=== PATIENT | female | born 1930 | race Caucasian/White ===

== ENCOUNTER 2016-04-18 15:17 | Inpatient (IN) | payer MEDICARE, BC ==
[~2016-04-18] VITALS: Ht 157.5 cm; Wt 49.9 kg
[2016-04-18 16:23] VITALS: BP 176/100
[2016-04-18 17:26] LABS: BASOPHILS % (AUTO) 0.6 % (0.0-2.0); EOSINOPHILS % (AUTO) 0.1 % (0.0-3.0); LYMPHOCYTES % (AUTO) 17.2 % (20.0-45.0); MEAN CORPUSCULAR HGB CONC 31.1 G/DL (32.0-36.0); MEAN CORPUSCULAR VOLUME 100 FL (80-99); MEAN PLATELET VOLUME 10.2 FL (6.5-10.1); MONOCYTES % (AUTO) 8.5 % (1.0-10.0); NEUTROPHILS % (AUTO) 73.7 % (45.0-75.0); PLATELET COUNT 185 K/UL (150-450); RED BLOOD COUNT 4.68 M/UL (4.20-5.40); RED CELL DISTRIBUTION WIDTH 14.2 % (11.6-14.8); WHITE BLOOD COUNT 14.4 K/UL (4.8-10.8)
[2016-04-18 17:30] LABS: ALANINE AMINOTRANSFERASE 39 U/L (3-33); ALBUMIN/GLOBULIN RATIO 1.2 (1.0-2.7); ANION GAP 16 (5-15); ASPARTATE AMINO TRANSFERASE 41 U/L (5-40); CALCIUM 10.6 mg/dL (8.6-10.2); CARBON DIOXIDE 31 mEQ/L (20-30); CHLORIDE 113 mEQ/L (98-107); HEMOLYSIS 63; POTASSIUM 3.6 mEQ/L (3.4-4.9); SODIUM 160 mEQ/L (135-145); TOTAL PROTEIN 7.3 g/dL (6.6-8.7)
[2016-04-18 17:39] LABS: TROPONIN I 0.71 ng/mL (<=0.30)
[2016-04-18 17:42] LABS: CKMB < 1.5 ng/mL (< 3.8)
[2016-04-18 17:56] LABS: APPEARANCE,URINE CLEAR; KETONES,URINE 1+ (NEGATIVE); LEUKOCYTE ESTERASE ,URINE 1+ (NEGATIVE); NITRITE,URINE NEGATIVE (NEGATIVE); PH,URINE 5 (4.5-8.0); PROTEIN,URINE 4+ (NEGATIVE); UROBILINOGEN,URINE NORMAL MG/DL (0.0-1.0)
[2016-04-18 18:02] LABS: BACTERIA,URINE MODERATE /HPF
[2016-04-18 18:03] LABS: AMORPHOUS SEDIMENT,UR FEW /LPF
[2016-04-18] MEDS ORDERED: cefTRIAXone 1 GM in NS 55 ML IVPB ONE (18:15)
[2016-04-18 18:30] VITALS: BP 164/72
[2016-04-18 20:08] VITALS: BP 150/77
--- NOTE | 2016-04-18 21:44 | Emergency Room Report ---
History of Present Illness General Chief Complaint: Generalized Weakness Source: EMS, Caregiver Present Illness HPI 85-year-old female presents to ED for evaluation. Her taker is at bedside and states that for the last day patient has been more weak than usual. Not eating. No reported fevers or chills. No chest pain or shortness of breath. No nausea or vomiting. No other aggravating or relieving factors. Denies any other associated symptoms. PMD is Dr. Marc Allergies: Coded Allergies: No Known Allergies (Unverified , 04/18/16) Patient History Past Medical History: CVA/TIA Past Surgical History: none Pertinent Family History: none Social History: Denies: alcohol use, drug use, smoking Now: No Immunizations: UTD Reviewed Nursing Documentation: PMH: Agreed, PSxH: Agreed Nursing Documentation-PMH Past Medical History: No History, Except For Hx Cerebrovascular Accident: Yes - Unknown deficit Review of Systems All Other Systems: negative except mentioned in HPI Physical Exam Vital Signs Date Time Temp Pulse Resp B/P Pulse Ox O2 Delivery O2 Flow Rate FiO2 04/18/16 15:13 97.9 112 16 160/102 97 Room Air Sp02 EP Interpretation: reviewed, normal General Appearance: no apparent distress, alert, GCS 15, non-toxic, thin Head: normocephalic, atraumatic Eyes: bilateral eye PERRL, bilateral eye normal inspection ENT: hearing grossly normal, normal pharynx, no angioedema, normal voice Neck: full range of motion, supple/symm/no masses Respiratory: chest non-tender, lungs clear, normal breath sounds, speaking full sentences Cardiovascular #1: regular rate, rhythm, no edema Cardiovascular #2: 2+ carotid (R), 2+ carotid (L), 2+ radial (R), 2+ radial (L) , 2+ dorsalis pedis (R), 2+ dorsalis pedis (L) Gastrointestinal: normal bowel sounds, non tender, soft, non-distended, no guarding, no rebound Rectal: deferred Genitourinary: normal inspection, no CVA tenderness Musculoskeletal: back normal, gait/station normal, normal range of motion, non- tender Neurologic: alert, oriented x3, responsive, motor strength/tone normal, sensory intact, speech normal Psychiatric: judgement/insight normal, memory normal, mood/affect normal, no suicidal/homicidal ideation Reflexes: 3+ bicep (R), 3+ bicep (L), 3+ tricep (R), 3+ tricep (L), 3+ knee (R) , 3+ knee (L) Skin: normal color, no rash, warm/dry, well hydrated Lymphatic: no adenopathy Procedures Critical Care Time Critical Care Time i. I feel this is a highly complex case requiring extensive working including EKG/Rhythm strip, Xray/CT/US, Blood/urine lab work, repeat exams while in ED, and administration of strong opiates/narcotics for pain control, admission to hospital or close patient follow up. Total time: 30 min bedside evaluation and treatment excludes procedures (EKG). Reason for critical care: Hypernatremia, dehydration, elevated troponin Possible complications: hypotension, hypertension, AR, shock, arrhythmias, metabolic acidosis, end organ damage, respiratory failure. Interventions: Labs, IV fluids, EKG, chest x-ray, aspirin, antibiotics Course: Patient brought in for generalized weakness. No chest pain. EKG shows T-wave inversions. Troponins elevated. Patient denies chest pain. Sodium elevated, consistent with dehydration. Given antibiotics for UTI. Given aspirin. Consultations: nursing staff, EMS, family Performed by: Dr Guido Tolerated well condition = serious j. because of unstable vital signs this patient had a condition that could potentially threaten life or limb. I feel this is a critical patient who required my full attention while patient was considered critical. Total Critical Care Time excluding procedures was greater than 35 minutes Medical Decision Making Diagnostic Impression: Primary Impression: Episode of generalized weakness Additional Impressions: Elevated troponin Dehydration Hypernatremia UTI (urinary tract infection) ER Course Hospital Course 85-year-old female presents ED complaining of increased weakness, poor appetite Differential diagnoses include: AR/unstable angina, dehydration, sepsis Clinical course She placed on stretcher. After initial history and physical I ordered labs, EKG , chest x-ray, UA labs reviewed- no leukocytosis, Na 160, BUN/Cr 50/1. Trop 0.72. UA + bacteria EKG-Twave inversions in lateral leads, no ST elevations Chest x-ray- no acute process Patient denies any chest pain. Discussed case with PMD Dr. Marc; will not treat acutely as NSTEMI. Given aspirin. Given antibiotics. Given IV fluids I. I feel this is a highly complex case requiring extensive working including EKG/Rhythm strip, Xray/CT/US, Blood/urine lab work, repeat exams while in ED, and administration of strong opiates/narcotics for pain control, admission to hospital or close patient follow up. Diagnosis - episode of generalized weakness, elevated troponin, dehydration, hypernatremia, UTI admitted to [facility] in serious condition Labs Test 04/18/16 16:18 04/18/16 17:37 White Blood Count 14.4 K/UL (4.8-10.8) Red Blood Count 4.68 M/UL (4.20-5.40) Hemoglobin 14.5 G/DL (12.0-16.0) Hematocrit 46.6 % (37.0-47.0) Mean Corpuscular Volume 100 FL (80-99) Mean Corpuscular Hemoglobin 31.0 PG (27.0-31.0) Mean Corpuscular Hemoglobin Concent 31.1 G/DL (32.0-36.0) Red Cell Distribution Width 14.2 % (11.6-14.8) Platelet Count 185 K/UL (150-450) Mean Platelet Volume 10.2 FL (6.5-10.1) Neutrophils (%) (Auto) 73.7 % (45.0-75.0) Lymphocytes (%) (Auto) 17.2 % (20.0-45.0) Monocytes (%) (Auto) 8.5 % (1.0-10.0) Eosinophils (%) (Auto) 0.1 % (0.0-3.0) Basophils (%) (Auto) 0.6 % (0.0-2.0) Sodium Level 160 mEQ/L (135-145) Potassium Level 3.6 mEQ/L (3.4-4.9) Chloride Level 113 mEQ/L (98-107) Carbon Dioxide Level 31 mEQ/L (20-30) Anion Gap 16 (5-15) Blood Urea Nitrogen 50 mg/dL (7-23) Creatinine 1.0 mg/dL (0.5-0.9) Estimat Glomerular Filtration Rate mL/min (>60) Glucose Level 138 mg/dL (74-106) Lactic Acid Level 1.80 mmol/L (0.66-2.22) Calcium Level 10.6 mg/dL (8.6-10.2) Total Bilirubin 0.6 mg/dL (0.0-1.2) Aspartate Amino Transf (AST/SGOT) 41 U/L (5-40) Alanine Aminotransferase (ALT/SGPT) 39 U/L (3-33) Alkaline Phosphatase 73 U/L (35-104) Total Creatine Kinase 234 U/L (26-140) Creatine Kinase MB < 1.5 ng/mL (< 3.8) Creatine Kinase MB Relative Index Troponin I 0.71 ng/mL (<=0.30) Total Protein 7.3 g/dL (6.6-8.7) Albumin 4.0 g/dL (3.5-5.2) Globulin 3.3 g/dL Albumin/Globulin Ratio 1.2 (1.0-2.7) Urine Color Yellow Urine Appearance Clear Urine pH 5 (4.5-8.0) Urine Specific [place] 1.025 (1.005-1.035) Urine Protein 4+ (NEGATIVE) Urine Glucose (UA) Negative (NEGATIVE) Urine Ketones 1+ (NEGATIVE) Urine Occult Blood 3+ (NEGATIVE) Urine Nitrite Negative (NEGATIVE) Urine Bilirubin Negative (NEGATIVE) Urine Urobilinogen Normal MG/DL (0.0-1.0) Urine Leukocyte Esterase 1+ (NEGATIVE) Urine RBC 5-10 /HPF (0 - 2) Urine WBC 2-4 /HPF (0 - 2) Urine Squamous Epithelial Cells None /LPF (NONE/OCC) Urine Amorphous Sediment Few /LPF (NONE) Urine Bacteria Moderate /HPF (NONE) EKG Diagnostic Results Rate: normal Rhythm: NSR ST Segments: other - T wave inversion in lateral leads ASA given to the pt in ED: Yes Rhythm Strip Diag. Results EP Interpretation: yes Rhythm: NSR, no PVC's, no ectopy Chest X-Ray Diagnostic Results EP Interpretation: Yes Findings: no consolidation, no effusion, no pneumothorax, no acute cardiopulmonary disease Number of Views: 1 Last Vital Signs Date Time Temp Pulse Resp B/P Pulse Ox O2 Delivery O2 Flow Rate FiO2 04/18/16 20:08 99 25 150/77 98 Room Air 04/18/16 16:23 99.3 Status: improved Disposition: ADMITTED INPATIENT Condition: Serious Referrals: NUBIA MARC (PCP) LESLIE GUIDO M.D. Apr 18, 2016 21:44
[2016-04-18] MEDS ORDERED: Heparin 25,000u/D5W 500ml 500 ML IV SCH (23:15)
--- NOTE | 2016-04-18 23:50 | Geriatric Progress Note ---
Subjective Interval Events 85 y/o woman with confusion, generalized weakness, anorexia. In ED found to have significant hypernatremia, azotemia, moderate leukocytosis, elevated troponin. Admitted for further eval and treatment. Hosp in December at [facility] with acute lacunar CVA. Hosp in January at [facility], s/p fall with lumbar compression fx. Rehab at [facility]. PMH: Cognitive dysfunction, ? vascular. Depressive syndrome. Abdominal bloating. Reflux. Presbyesophagus. Gastritis. Pancreatic insufficiency. Hyperlipidemia. Glaucoma. UTIs. Hx of Fe deficiency. Hx hemorrhoids. Seen yesterday in office with some nausea, regurgitation, ?element of dysphagia. Appeared volume depleted, but reported as able to take po fluids. Instructed to push po fluids, follow up with Dr. Borjas. Brought in today because of lethargy, no further vomiting. Given IVF, Ceftriaxone in ED. Continue IVF, Ceftriaxone. Recheck labs. GI evaluation. Full liquid diet and advance as tolerated. Dictated #[id number]. Geriatric Geriatric Last 24 Hour Vital Signs Date Time Temp Pulse Resp B/P Pulse Ox O2 Delivery O2 Flow Rate FiO2 04/18/16 23:16 91 17 143/75 98 Room Air 04/18/16 20:08 99 25 150/77 98 Room Air 04/18/16 18:30 96 18 164/72 99 Room Air 04/18/16 16:23 99.3 124 26 176/100 97 Room Air 04/18/16 15:13 97.9 112 16 160/102 97 Room Air Laboratory Tests Test 04/18/16 16:18 04/18/16 17:37 White Blood Count 14.4 K/UL (4.8-10.8) H Red Blood Count 4.68 M/UL (4.20-5.40) Hemoglobin 14.5 G/DL (12.0-16.0) Hematocrit 46.6 % (37.0-47.0) Mean Corpuscular Volume 100 FL (80-99) H Mean Corpuscular Hemoglobin 31.0 PG (27.0-31.0) Mean Corpuscular Hemoglobin Concent 31.1 G/DL (32.0-36.0) L Red Cell Distribution Width 14.2 % (11.6-14.8) Platelet Count 185 K/UL (150-450) Mean Platelet Volume 10.2 FL (6.5-10.1) H Neutrophils (%) (Auto) 73.7 % (45.0-75.0) Lymphocytes (%) (Auto) 17.2 % (20.0-45.0) L Monocytes (%) (Auto) 8.5 % (1.0-10.0) Eosinophils (%) (Auto) 0.1 % (0.0-3.0) Basophils (%) (Auto) 0.6 % (0.0-2.0) Sodium Level 160 mEQ/L (135-145) H Potassium Level 3.6 mEQ/L (3.4-4.9) Chloride Level 113 mEQ/L (98-107) H Carbon Dioxide Level 31 mEQ/L (20-30) H Anion Gap 16 (5-15) H Blood Urea Nitrogen 50 mg/dL (7-23) H Creatinine 1.0 mg/dL (0.5-0.9) H Estimat Glomerular Filtration Rate mL/min (>60) Glucose Level 138 mg/dL (74-106) H Lactic Acid Level 1.80 mmol/L (0.66-2.22) Calcium Level 10.6 mg/dL (8.6-10.2) H Total Bilirubin 0.6 mg/dL (0.0-1.2) Aspartate Amino Transf (AST/SGOT) 41 U/L (5-40) H Alanine Aminotransferase (ALT/SGPT) 39 U/L (3-33) H Alkaline Phosphatase 73 U/L (35-104) Total Creatine Kinase 234 U/L (26-140) H Creatine Kinase MB < 1.5 ng/mL (< 3.8) Creatine Kinase MB Relative Index Troponin I 0.71 ng/mL (<=0.30) *H Total Protein 7.3 g/dL (6.6-8.7) Albumin 4.0 g/dL (3.5-5.2) Globulin 3.3 g/dL Albumin/Globulin Ratio 1.2 (1.0-2.7) Urine Color Yellow Urine Appearance Clear Urine pH 5 (4.5-8.0) Urine Specific [place] 1.025 (1.005-1.035) Urine Protein 4+ (NEGATIVE) H Urine Glucose (UA) Negative (NEGATIVE) Urine Ketones 1+ (NEGATIVE) H Urine Occult Blood 3+ (NEGATIVE) H Urine Nitrite Negative (NEGATIVE) Urine Bilirubin Negative (NEGATIVE) Urine Urobilinogen Normal MG/DL (0.0-1.0) Urine Leukocyte Esterase 1+ (NEGATIVE) H Urine RBC 5-10 /HPF (0 - 2) H Urine WBC 2-4 /HPF (0 - 2) Urine Squamous Epithelial Cells None /LPF (NONE/OCC) Urine Amorphous Sediment Few /LPF (NONE) H Urine Bacteria Moderate /HPF (NONE) H Current Medications Medications (Trade) Dose Ordered Sig/Remy Route PRN Reason Start Time Stop Time Status Last Admin Dose Admin Dextrose/ Electrolytes (D5 0.45%NS W/ KCl 20mEq) 1,000 ml @ 100 mls/hr Q10H IV 04/19/16 00:05 05/19/16 00:04 UNV Heparin Sodium (Porcine) (Heparin 5000 units/ml) 5,000 units EVERY 12 HOURS SUBQ 04/19/16 09:00 05/19/16 08:59 UNV Heparin Sodium/ Dextrose (Heparin) 500 ml @ 11.975 mls/ hr adjust per protocol IV 04/18/16 23:15 05/18/16 23:14 UNV Pantoprazole 40 mg 40 mg DAILY IV 04/19/16 09:00 05/19/16 08:59 UNV Height (Feet): 5 Height (Inches): 2.00 Weight (Pounds): 110 NUBIA MARC Apr 18, 2016 23:50
[2016-04-19 00:15] VITALS: BP 155/85
[2016-04-19] MEDS ORDERED: D5 1/2NS w/KCl 20mEq 1,000 ML IV SCH ×2 (00:30)
[2016-04-19 02:13] LABS: TROPONIN I 0.5 ng/mL (<=0.30)
[2016-04-19 04:00] VITALS: BP 131/64
[2016-04-19 05:16] LABS: BASOPHILS % (AUTO) 0.7 % (0.0-2.0); EOSINOPHILS % (AUTO) 0.1 % (0.0-3.0); LYMPHOCYTES % (AUTO) 17.1 % (20.0-45.0); MEAN CORPUSCULAR HEMOGLOBIN 30.5 PG (27.0-31.0); MEAN CORPUSCULAR HGB CONC 31.4 G/DL (32.0-36.0); MEAN CORPUSCULAR VOLUME 97 FL (80-99); MEAN PLATELET VOLUME 9.8 FL (6.5-10.1); MONOCYTES % (AUTO) 7.5 % (1.0-10.0); NEUTROPHILS % (AUTO) 74.5 % (45.0-75.0); PLATELET COUNT 167 K/UL (150-450); RED BLOOD COUNT 4.28 M/UL (4.20-5.40); RED CELL DISTRIBUTION WIDTH 14.1 % (11.6-14.8); WHITE BLOOD COUNT 11.6 K/UL (4.8-10.8)
[2016-04-19 05:19] LABS: ANION GAP 14 (5-15); CALCIUM 9.2 mg/dL (8.6-10.2); CARBON DIOXIDE 29 mEQ/L (20-30); CHLORIDE 120 mEQ/L (98-107); CREATININE 0.7 mg/dL (0.5-0.9); HEMOLYSIS 0; POTASSIUM 3.2 mEQ/L (3.4-4.9)
[2016-04-19 05:24] LABS: SODIUM 163 mEQ/L (135-145)
[2016-04-19 07:56] VITALS: BP 156/85
[2016-04-19] MEDS ORDERED: Timolol 0.5% Op Soln 2.5ml BOTH EYES SCH (09:00)
[2016-04-19] MEDS: Pancrease Cap ORAL SCH ×3 (09:30→17:46)
[2016-04-19] MEDS: Memantine 10mg tab ORAL SCH ×2 (09:30→17:47)
[2016-04-19] MEDS: Aspirin Baby 81mg ORAL SCH (09:30)
[2016-04-19] MEDS: Pantoprazole Inj IV SCH (09:31)
[2016-04-19] MEDS: DULoxetine 30mg cap ORAL SCH (09:31)
[2016-04-19] MEDS: Heparin 5000 units/ml inj SUBQ SCH ×2 (09:57→21:14)
[2016-04-19] MEDS ORDERED: ARTIFICIAL TEAR15 ML BOTH EYES (10:58)
[2016-04-19] MEDS ORDERED: TIMOPTIC 0.5%1 EACH OP (10:58)
[2016-04-19] MEDS ORDERED: PANCREASE1 EA ORAL (10:58)
[2016-04-19] MEDS ORDERED: LEXAPRO10 MG ORAL (10:58)
[2016-04-19] MEDS ORDERED: ROZEREM8 MG PO (10:58)
[2016-04-19] MEDS ORDERED: ARICEPT5 MG ORAL (10:58)
[2016-04-19] MEDS ORDERED: CYMBALTA30 MG ORAL (10:58)
[2016-04-19] MEDS ORDERED: ASPIRIN81 M3 PO (10:58)
[2016-04-19] MEDS ORDERED: PROTONIX40 MG ORAL (10:58)
[2016-04-19] MEDS ORDERED: NAMENDA10 MG ORAL (10:58)
[2016-04-19 11:54] VITALS: BP 167/96
[2016-04-19] MEDS: Artificial Tears 1.4% Op Soln BOTH EYES SCH ×4 (13:55→21:09)
[2016-04-19] MEDS: Timolol 0.5% Op Soln 2.5ml BOTH EYES SCH (13:55)
--- NOTE | 2016-04-19 14:35 | Cardiology Progress Note ---
Assessment/Plan Assessment/Plan nstemi toxic metabolic encphalptpathy hypernatremia volume depeteion demetial recetn compression fx dnr conservative rexm d/w family no invasive haley ecotrin ntp statin bb [id number] Objective Last 24 Hour Vital Signs Date Time Temp Pulse Resp B/P Pulse Ox O2 Delivery O2 Flow Rate FiO2 04/19/16 11:54 97.0 90 20 167/96 96 Room Air 04/19/16 07:56 97.3 88 18 156/85 99 Room Air 04/19/16 04:00 93 04/19/16 04:00 98.8 79 20 131/64 97 Room Air 04/19/16 00:15 98.1 98 20 155/85 97 Room Air 04/18/16 23:16 91 17 143/75 98 Room Air 04/18/16 20:08 99 25 150/77 98 Room Air 04/18/16 18:30 96 18 164/72 99 Room Air 04/18/16 16:23 99.3 124 26 176/100 97 Room Air 04/18/16 15:13 97.9 112 16 160/102 97 Room Air Intake and Output 04/18/16 04/19/16 19:00 07:00 Intake Total 1055 ml 450 ml Output Total 400 ml Balance 1055 ml 50 ml Intake Oral 0 ml IV Total 1055 ml 450 ml Output Urine Total 400 ml Laboratory Tests Test 04/18/16 16:18 04/18/16 17:37 04/19/16 01:15 04/19/16 04:25 White Blood Count 14.4 K/UL (4.8-10.8) H 11.6 K/UL (4.8-10.8) H Red Blood Count 4.68 M/UL (4.20-5.40) 4.28 M/UL (4.20-5.40) Hemoglobin 14.5 G/DL (12.0-16.0) 13.0 G/DL (12.0-16.0) Hematocrit 46.6 % (37.0-47.0) 41.5 % (37.0-47.0) Mean Corpuscular Volume 100 FL (80-99) H 97 FL (80-99) Mean Corpuscular Hemoglobin 31.0 PG (27.0-31.0) 30.5 PG (27.0-31.0) Mean Corpuscular Hemoglobin Concent 31.1 G/DL (32.0-36.0) L 31.4 G/DL (32.0-36.0) L Red Cell Distribution Width 14.2 % (11.6-14.8) 14.1 % (11.6-14.8) Platelet Count 185 K/UL (150-450) 167 K/UL (150-450) Mean Platelet Volume 10.2 FL (6.5-10.1) H 9.8 FL (6.5-10.1) Neutrophils (%) (Auto) 73.7 % (45.0-75.0) 74.5 % (45.0-75.0) Lymphocytes (%) (Auto) 17.2 % (20.0-45.0) L 17.1 % (20.0-45.0) L Monocytes (%) (Auto) 8.5 % (1.0-10.0) 7.5 % (1.0-10.0) Eosinophils (%) (Auto) 0.1 % (0.0-3.0) 0.1 % (0.0-3.0) Basophils (%) (Auto) 0.6 % (0.0-2.0) 0.7 % (0.0-2.0) Sodium Level 160 mEQ/L (135-145) H 163 mEQ/L (135-145) *H Potassium Level 3.6 mEQ/L (3.4-4.9) 3.2 mEQ/L (3.4-4.9) L Chloride Level 113 mEQ/L (98-107) H 120 mEQ/L (98-107) H Carbon Dioxide Level 31 mEQ/L (20-30) H 29 mEQ/L (20-30) Anion Gap 16 (5-15) H 14 (5-15) Blood Urea Nitrogen 50 mg/dL (7-23) H 41 mg/dL (7-23) H Creatinine 1.0 mg/dL (0.5-0.9) H 0.7 mg/dL (0.5-0.9) Estimat Glomerular Filtration Rate mL/min (>60) mL/min (>60) Glucose Level 138 mg/dL (74-106) H 120 mg/dL (74-106) H Lactic Acid Level 1.80 mmol/L (0.66-2.22) Calcium Level 10.6 mg/dL (8.6-10.2) H 9.2 mg/dL (8.6-10.2) Total Bilirubin 0.6 mg/dL (0.0-1.2) Aspartate Amino Transf (AST/SGOT) 41 U/L (5-40) H Alanine Aminotransferase (ALT/SGPT) 39 U/L (3-33) H Alkaline Phosphatase 73 U/L (35-104) Total Creatine Kinase 234 U/L (26-140) H Creatine Kinase MB < 1.5 ng/mL (< 3.8) Creatine Kinase MB Relative Index Troponin I 0.71 ng/mL (<=0.30) *H 0.50 ng/mL (<=0.30) *H Total Protein 7.3 g/dL (6.6-8.7) Albumin 4.0 g/dL (3.5-5.2) Globulin 3.3 g/dL Albumin/Globulin Ratio 1.2 (1.0-2.7) Urine Color Yellow Urine Appearance Clear Urine pH 5 (4.5-8.0) Urine Specific [place] 1.025 (1.005-1.035) Urine Protein 4+ (NEGATIVE) H Urine Glucose (UA) Negative (NEGATIVE) Urine Ketones 1+ (NEGATIVE) H Urine Occult Blood 3+ (NEGATIVE) H Urine Nitrite Negative (NEGATIVE) Urine Bilirubin Negative (NEGATIVE) Urine Urobilinogen Normal MG/DL (0.0-1.0) Urine Leukocyte Esterase 1+ (NEGATIVE) H Urine RBC 5-10 /HPF (0 - 2) H Urine WBC 2-4 /HPF (0 - 2) Urine Squamous Epithelial Cells None /LPF (NONE/OCC) Urine Amorphous Sediment Few /LPF (NONE) H Urine Bacteria Moderate /HPF (NONE) H Activated Partial Thromboplast Time 22 SEC (23-33) L Microbiology Date/Time Source Procedure Growth Status 04/18/16 17:37 Urine,Clean Catch Urine Culture - Preliminary Gram Negative Jd Resulted ANDREE PROCTOR Apr 19, 2016 14:35
[2016-04-19] MEDS ORDERED: Nitroglycerin 2% oint pkt TOPIC ONE (14:45)
[2016-04-19] MEDS ORDERED: Metoprolol 5mg/5ml Inj IVP PRN (15:30)
[2016-04-19] MEDS: Metoprolol 25mg tab ORAL SCH ×2 (15:40→21:13)
[2016-04-19] MEDS ORDERED: Metoprolol Tartrate 12.5mg TAB ORAL SCH (16:00)
[2016-04-19 16:39] VITALS: BP 179/109
[2016-04-19] MEDS: Nitroglycerin 2% oint pkt TOPIC SCH (17:45)
[2016-04-19] MEDS: cefTRIAXone 1 GM in D5W 55 ML IVPB SCH (17:45)
--- NOTE | 2016-04-19 19:06 | Geriatric Progress Note ---
Assessment/Plan Problems: (1) Hypernatremia (2) Dehydration (3) Elevated troponin (4) Episode of generalized weakness (5) Toxic metabolic encephalopathy Assessment/Plan Possible underlying CAD with global ischemia, either high grade disease or hypoperfusion ischemia. Volume depletion with elctrolyte disorder. Anorexia due to multiple factors. Leukocytosis resolving with empiric coverage. Continue IVF, Ceftriaxone, cardiac meds per Dr. Cavazos, recheck labs. Discussed with: patient, hospital staff, other - caregiver Subjective Interval Events Patient slightly more responsive but still with inarticulate answers. EKG changes suggestive of global ischemia per Dr. Cavazos. Na up to 168, IVF changed to increase free water. BUN/Cr improved somewhat. Per Dr. Cavazos, possibility of coronary ischemia, further compromise discussed with family, conservative approach elected. Minimal amount of P.O begun. Subjective No definite pain, responses limited. Geriatric Geriatric Last 24 Hour Vital Signs Date Time Temp Pulse Resp B/P Pulse Ox O2 Delivery O2 Flow Rate FiO2 04/19/16 17:45 179/109 04/19/16 16:39 97.2 100 18 179/109 100 Nasal Cannula 2.0 04/19/16 15:40 90 167/96 04/19/16 14:52 167/96 04/19/16 12:00 90 04/19/16 11:54 97.0 90 20 167/96 96 Room Air 04/19/16 08:00 94 04/19/16 07:56 97.3 88 18 156/85 99 Room Air 04/19/16 04:00 93 04/19/16 04:00 98.8 79 20 131/64 97 Room Air 04/19/16 00:15 98.1 98 20 155/85 97 Room Air 04/18/16 23:16 91 17 143/75 98 Room Air 04/18/16 20:08 99 25 150/77 98 Room Air Intake and Output 04/18/16 04/19/16 19:00 07:00 Intake Total 1055 ml 450 ml Output Total 400 ml Balance 1055 ml 50 ml Intake Oral 0 ml IV Total 1055 ml 450 ml Output Urine Total 400 ml Laboratory Tests Test 04/19/16 01:15 04/19/16 04:25 Activated Partial Thromboplast Time 22 SEC (23-33) L Troponin I 0.50 ng/mL (<=0.30) *H White Blood Count 11.6 K/UL (4.8-10.8) H Red Blood Count 4.28 M/UL (4.20-5.40) Hemoglobin 13.0 G/DL (12.0-16.0) Hematocrit 41.5 % (37.0-47.0) Mean Corpuscular Volume 97 FL (80-99) Mean Corpuscular Hemoglobin 30.5 PG (27.0-31.0) Mean Corpuscular Hemoglobin Concent 31.4 G/DL (32.0-36.0) L Red Cell Distribution Width 14.1 % (11.6-14.8) Platelet Count 167 K/UL (150-450) Mean Platelet Volume 9.8 FL (6.5-10.1) Neutrophils (%) (Auto) 74.5 % (45.0-75.0) Lymphocytes (%) (Auto) 17.1 % (20.0-45.0) L Monocytes (%) (Auto) 7.5 % (1.0-10.0) Eosinophils (%) (Auto) 0.1 % (0.0-3.0) Basophils (%) (Auto) 0.7 % (0.0-2.0) Sodium Level 163 mEQ/L (135-145) *H Potassium Level 3.2 mEQ/L (3.4-4.9) L Chloride Level 120 mEQ/L (98-107) H Carbon Dioxide Level 29 mEQ/L (20-30) Anion Gap 14 (5-15) Blood Urea Nitrogen 41 mg/dL (7-23) H Creatinine 0.7 mg/dL (0.5-0.9) Estimat Glomerular Filtration Rate mL/min (>60) Glucose Level 120 mg/dL (74-106) H Calcium Level 9.2 mg/dL (8.6-10.2) Current Medications Medications (Trade) Dose Ordered Sig/Remy Route PRN Reason Start Time Stop Time Status Last Admin Dose Admin Amylase/Lipase/ Protease (Pancrease) 2 ea THREE TIMES A DAY ORAL 04/19/16 09:00 05/19/16 08:59 04/19/16 17:46 Artificial Tears 1 drop 1 drop QID BOTH EYES 04/19/16 09:00 05/19/16 08:59 04/19/16 17:45 Aspirin (ASA) 81 mg DAILY ORAL 04/19/16 09:00 05/19/16 08:59 04/19/16 09:30 Atorvastatin Calcium (Lipitor) 10 mg BEDTIME ORAL 04/19/16 21:00 05/19/16 20:59 Ceftriaxone Sodium 1 gm/ Dextrose 55 ml @ 110 mls/hr Q24H IVPB 04/19/16 18:00 04/26/16 17:59 04/19/16 17:45 Donepezil HCl (Aricept) 5 mg QHS ORAL 04/19/16 21:00 05/19/16 20:59 Duloxetine HCl (Cymbalta) 30 mg DAILY ORAL 04/19/16 09:00 05/19/16 08:59 04/19/16 09:31 Escitalopram Oxalate (Lexapro) 5 mg QHS ORAL 04/19/16 21:00 05/19/16 20:59 Heparin Sodium (Porcine) (Heparin 5000 units/ml) 5,000 units EVERY 12 HOURS SUBQ 04/19/16 09:00 05/19/16 08:59 04/19/16 09:57 Memantine (Namenda) 10 mg BID ORAL 04/19/16 09:00 05/19/16 08:59 04/19/16 17:47 Metoprolol Tartrate (Lopressor) 5 mg Q4H PRN IVP hr more 120 for 5 min 04/19/16 15:30 05/19/16 15:29 Metoprolol Tartrate (Lopressor) 25 mg Q12HR ORAL 04/19/16 15:30 05/19/16 15:29 04/19/16 15:40 Nitroglycerin (Nitro-Bid) 1 inch TID@0600,1200,1800 TOPIC 04/19/16 18:00 05/19/16 17:59 04/19/16 17:45 Pantoprazole (Protonix) 40 mg DAILY IV 04/19/16 09:00 05/19/16 08:59 04/19/16 09:31 Potassium Chloride/Dextrose (KCl/D5W 1000ml) 1,015 ml @ 100 mls/hr Q10H9M IV 04/19/16 08:30 05/19/16 08:29 04/19/16 17:48 Ramelteon (Rozerem) 8 mg QHS ORAL 04/19/16 21:00 05/19/16 20:59 Timolol Maleate (Timoptic 0.5% Op Soln) 1 drop TWICE A DAY BOTH EYES 04/19/16 18:00 05/19/16 17:59 04/19/16 13:55 Height (Feet): 5 Height (Inches): 2.00 Weight (Pounds): 110 General Appearance: lethargic Head: normocephalic Eyes: bilateral anicteric ENT: normal voice Neck: full range of motion, no mass Respiratory: lungs clear Cardiovascular: regular rate, rhythm Gastrointestinal: normal bowel sounds, non tender, soft, no mass, no organomegaly, non-distended Edema: no edema noted Generalized Neurologic: alert, no new focality NUBIA MARC Apr 19, 2016 19:06
[2016-04-19 20:00] VITALS: BP 163/84
[2016-04-19] MEDS: Ramelteon 8mg tab (Approved for Delirium use only) ORAL SCH (21:10)
[2016-04-19] MEDS: Donepezil 5mg Tab ORAL SCH (21:12)
[2016-04-19 23:48] LABS: TROPONIN I < 0.30 ng/mL (<=0.30)
[2016-04-20] VITALS (7 sets, daily range): BP systolic 104–150; BP diastolic 56–85
--- NOTE | 2016-04-20 04:59 | History and Physical Report ---
DATE OF ADMISSION: 04/18/2016 IDENTIFICATION DATA: The patient is an 85-year-old woman, who developed lethargy and unresponsiveness and was brought to the emergency room. HISTORY OF PRESENT ILLNESS: This patient has been quite frail and declining functionally over an extended period of time. Apparently sometime in 2013, she experienced a cerebrovascular event, which caused cognitive changes and some degree of gait instability. Prior to that, she reportedly had been playing tennis. Subsequently, she has been living at home with a part-time caregiver and has had symptoms of depression, but also recurrent complaints of abdominal bloating and poor oral intake. She has been seen by Dr. Claire Borjas and had undergone a colonoscopy and endoscopy with findings of gastritis, reflux, hiatal hernia, and presbyesophagus. She has also had history of hemorrhoids with bleeding and discomfort. Overall evaluation has also suggested somewhat unclear pancreatic pathology with evidence of some pancreatic insufficiency and the patient has been placed on pancreatic enzyme supplements. Because of recurrent complaints of pain as well as depressive symptomatology, the patient had been placed on Cymbalta as well and developed some overall improvement of her symptoms; however, in December 2015, the patient was hospitalized at [facility] with change in mental status and an apparent acute lacunar-type cerebrovascular accident. She returned home, but subsequently in January was hospitalized again at [facility] with back injury due to a fall. The findings included a lumbar compression fracture and the patient was discharged to [facility] for rehabilitation. She was discharged a number of weeks ago and returned home. At the [facility], despite significant functional limitations, she appeared relatively comfortable and appeared to be maintaining her oral intake and fluid hydration sufficiently to be stabilized; however, on returning home, the patient apparently has had increasing weakness, poor oral intake, and began developing over the last week some episodes of nausea and what appeared to be regurgitation since the patient's caregiver described her as bringing up food almost immediately after intake. She was seen in the office on the day prior to admission and at that point appeared weak and somewhat volume depleted; however, according to the caregivers, her vomiting had ceased, she had had normal bowel movements, and they felt that she could take sufficient oral liquids to try and replete her volume as an outpatient. Therefore, she was discharged to home with those instructions and to follow up with Dr. Borjas to see if any further recommendations could be made from gastrointestinal point of view; however, apparently the patient did not have sufficient oral intake. She had no further vomiting and no evidence of fever or other specific symptoms, but became lethargic and relatively unresponsive. In the office the patient had variously reported abdominal discomfort, diaphragmatic soreness, and a sticking sensation when swallowing in her mid-chest. She was brought to the emergency department. In the emergency room, Dr. Guido found her to have an evidence of probable volume depletion. There was also leukocytosis and significant azotemia. The patient was given intravenous fluids and begun on empiric ceftriaxone. As she was leaving the emergency room, her troponin result returned showing evidence of troponin of 0.71. At this point, it was unclear whether the patient in fact had a discrete cardiovascular event or whether this was an overall global hypoperfusion episode associated with the patient's apparent intravascular volume depletion and whether the patient's renal insufficiency was accentuating the apparent change. Given the fact the patient had previously selected on her POLST to have DNR status and relatively conservative therapy, it was felt that invasive therapy was likely not to be warranted and the patient was admitted to telemetry. Cardiology consultation was also requested from Dr. Jose Cavazos. PAST MEDICAL HISTORY: 1. 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 2. Depressive syndrome. 3. Multiple abdominal complaints as noted above including abdominal bloating, reflux, hiatal hernia, presbyesophagus, gastritis, and pancreatic insufficiency. 4. Hyperlipidemia. 5. Glaucoma. 6. History of UTIs. 7. History of iron deficiency. 8. History of hemorrhoids. CURRENT MEDICATIONS: The patient's current medications include Creon DR 24,000 units t.i.d., Lexapro 5 mg nightly, Cymbalta 30 mg daily, donepezil 10 mg daily, memantine 10 mg b.i.d., simvastatin 10 mg nightly, Timoptic b.i.d. both eyes, Refresh daily both eyes, Retain b.i.d., and Avenova daily. The patient also was previously on Xarelto, but because of her fall, it was felt that the patient is at too high risk for bleed with trauma and this was discontinued while the patient was at [facility]. 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 She had been living in her own apartment with initially part-time care, but more recently full-time care and her surrogate decision-makers are her stepsons. As stated before, she has POLST which indicates limited treatment and DNR, possible trial of enteral feeding. REVIEW OF SYSTEMS: Currently in terms of review of systems, the patient is unable to coherently respond to detailed questions. She appears somewhat dazed and does not specifically complain of discomfort, but appears somewhat uncomfortable with various complaints of discomfort in the abdomen with deep inspiration and also some complaints of swallowing difficulties in the midchest area. PHYSICAL EXAMINATION: VITAL SIGNS: The patient's blood pressure is 150/77, heart rate 99, respiratory rate 25, and oxygen saturations 98% on room air. GENERAL: The patient is a frail woman, lying in bed, at slight angle with her axis resulting in her ower extremities adjacent to or sticking through the gurney side-rail. She had limited verbal responses, but was alert and made eye contact with the examiner. She did not endorse specific discomfort when asked in general sense, but only responded with some admissions of discomfort when specifically asked about various areas as described above. HEENT: Head and neck exam reveals normocephalic skull. Sclerae appear anicteric. The oropharynx appears dry. NECK: Reveals what appears to be normal range of motion with no masses. CHEST: Reveals distant breath sounds. There is no clear chest congestion and no wheezing. HEART: The rhythm appears to be regular. ABDOMEN: Reveals normal bowel sounds. It is soft. The patient complains of diffuse tenderness to palpation in mild fashion, but without any localization and certainly no definitive guarding or rebound. EXTREMITIES: Revealed no significant edema. There is no calf tenderness appreciated. SKIN: The patient's skin reveals a skin tear in the lateral aspect of the distal right lower extremity, the proximal aspect of the left upper extremity laterally, and an area of irritation to the sacrococcyx area which may represent incontinence-associated dermatitis or perhaps superficial trauma. NEUROLOGIC: There is no clear evidence of new focality, but detailed examination is difficult because of the patient's mental status at this point. LABORATORY DATA: Initial laboratory data revealed white count of 14.4 with fairly unremarkable differential, hematocrit is 46.6%, MCV in the 100, and platelet count 185,000. Sodium 160, potassium 3.6, chloride 113, bicarbonate 31, BUN 50, creatinine 1.0, glucose 138, lactate 1.8, calcium 10.6, total bilirubin 0.6, AST 41, ALT 39, alkaline phosphatase 73. CK 234, MB less than 1.5, troponin 0.71. Albumin 4.0 and total protein 7.3. Urinalysis shows 4+ protein, 1+ ketones, 3+ occult blood, 1+ leukocyte esterase, 5-10 RBCs, 2-4 WBCs, moderate bacteria, and amorphous sediment. IMPRESSION AND PLAN: The patient presents with significant azotemia and hypernatremia consistent with volume depletion associated with her recent poor oral intake. The patient will be hydrated with a component of free water as well as potassium supplementation in order to attempt to correct the initial electrolyte abnormalities. Whether there is an infectious etiology leading to the elevation of white count is not entirely clear. This could be simply demargination associated with the patient's volume depletion and recent debility. The patient's urine is not particularly impressive in terms of definitive urinary tract infection and there is no clear evidence of any pulmonary etiology at the present time. The patient's abdomen is nonspecific as it has been in the past. Certainly some component of bowel dysfunction with constipation or irritable bowel, pancreatic insufficiency, gastritis, and reflux could account for some of the patient's difficulty with oral intake and her symptomatology. A possible infectious process in the abdomen seems less likely given the relatively benign examination at the present time, but once the patient is stabilized, additional gastrointestinal evaluation may be warranted. The patient's elevated troponin with normal CK and MB fraction does not suggest significant amount of cardiac muscle involvement, but clearly an element of ischemia cannot be entirely ruled out. Given the patient's desire for relatively limited invasive intervention at the present time, catheterization and invasive investigation will probably not be indicated, but cardiology consultation has been requested from Dr. Cavazos in this regard. The patient may simply have an element of demand ischemia associated with her significant volume depletion and the troponin may be somewhat artificially elevated because of her diminished renal function. There is potential that the patient's mentioned medications and antidepressants could be contributing to any GI symptomatology as well and consideration may be given to tapering some of these medications, although the patient has had a long course over the last three years or so of gradual progressive decline with multiple gastrointestinal symptoms. Although there is no clear etiology for infectious process, the patient will be covered empirically with ceftriaxone pending clinical response and further laboratory results. Additional interventions will be considered depending on the patient's response to initial therapy and further laboratory results. Aleksander Okeefe M.D. DR: Ravinder JOB#: [id number] CC: NAVDEEP
[2016-04-20] MEDS: Nitroglycerin 2% oint pkt TOPIC SCH ×3 (07:30→17:44)
[2016-04-20 07:41] LABS: BASOPHILS % (AUTO) 0.4 % (0.0-2.0); EOSINOPHILS % (AUTO) 1.4 % (0.0-3.0); LYMPHOCYTES % (AUTO) 18.7 % (20.0-45.0); MEAN CORPUSCULAR HEMOGLOBIN 30.1 PG (27.0-31.0); MEAN CORPUSCULAR HGB CONC 30.9 G/DL (32.0-36.0); MEAN CORPUSCULAR VOLUME 97 FL (80-99); MEAN PLATELET VOLUME 11.6 FL (6.5-10.1); MONOCYTES % (AUTO) 5.5 % (1.0-10.0); PLATELET COUNT 159 K/UL (150-450); RED BLOOD COUNT 3.69 M/UL (4.20-5.40); RED CELL DISTRIBUTION WIDTH 14.1 % (11.6-14.8); WHITE BLOOD COUNT 9.6 K/UL (4.8-10.8)
[2016-04-20 07:49] LABS: ANION GAP 10 (5-15); CARBON DIOXIDE 30 mEQ/L (20-30); CHLORIDE 116 mEQ/L (98-107); CREATININE 0.6 mg/dL (0.5-0.9); HEMOLYSIS 15; MAGNESIUM 2.3 mg/dL (1.7-2.5); PHOSPHORUS 2.1 mg/dL (2.5-4.8); SODIUM 156 mEQ/L (135-145)
[2016-04-20 08:36] LABS: TROPONIN I < 0.30 ng/mL (<=0.30)
[2016-04-20] MEDS: Artificial Tears 1.4% Op Soln BOTH EYES SCH ×4 (09:13→21:22)
[2016-04-20] MEDS: Pancrease Cap ORAL SCH ×3 (09:14→17:42)
[2016-04-20] MEDS: Metoprolol 25mg tab ORAL SCH ×2 (09:14→21:00)
[2016-04-20] MEDS: Timolol 0.5% Op Soln 2.5ml BOTH EYES SCH ×2 (09:14→17:42)
[2016-04-20] MEDS: Pantoprazole Inj IV SCH (09:15)
[2016-04-20] MEDS: DULoxetine 30mg cap ORAL SCH (09:15)
[2016-04-20] MEDS: Aspirin Baby 81mg ORAL SCH (09:15)
[2016-04-20] MEDS: Memantine 10mg tab ORAL SCH ×2 (09:15→17:42)
[2016-04-20] MEDS: Heparin 5000 units/ml inj SUBQ SCH ×2 (09:39→21:17)
[2016-04-20] MEDS ORDERED: NS 275ml ONE (10:03)
[2016-04-20] MEDS ORDERED: Tubing IV Secondary IV ONE (10:03)
--- NOTE | 2016-04-20 14:06 | Cardiology Progress Note ---
Assessment/Plan Assessment/Plan nstemi toxic metabolic encephalopathy hypernatremia volume depletion demetial recent compression fx svt lv systolic dysfunction dnr conservative rxn d/w family no invasive haley Ecotrin ntp statin bb yest had a very rapid svt episode after my initial evaluation now is on higher dose of bb na improved trop now normal the prelim echo report showed sig lv systolic dysfunction which is new compared to her prior echo reprot at [facility] 2 mon ago cannot exclude stunned myocardium if truely present await ekg nto yet performed for now will decrease ivf rate Subjective ROS Limited/Unobtainable: Yes Subjective acute care physical therapist thinks pt is better she hardly talks when i ask her any question Objective Last 24 Hour Vital Signs Date Time Temp Pulse Resp B/P Pulse Ox O2 Delivery O2 Flow Rate FiO2 04/20/16 12:28 115/58 04/20/16 11:55 68 04/20/16 11:40 97.2 66 18 115/58 100 Nasal Cannula 2.0 04/20/16 09:14 71 133/77 04/20/16 09:02 97.3 68 18 133/77 100 Nasal Cannula 2.0 04/20/16 08:03 72 04/20/16 08:00 97.3 68 18 133/77 100 Nasal Cannula 2.0 04/20/16 07:30 141/85 04/20/16 04:33 152 141/85 04/20/16 04:00 73 04/20/16 04:00 97.0 73 18 141/85 100 Room Air 04/20/16 00:00 97.7 74 16 150/85 99 Room Air 04/20/16 00:00 74 04/19/16 21:13 83 163/84 04/19/16 20:00 98.2 83 20 163/84 99 Room Air 04/19/16 20:00 80 04/19/16 17:45 179/109 04/19/16 16:39 97.2 100 18 179/109 100 Nasal Cannula 2.0 04/19/16 16:00 87 04/19/16 15:40 90 167/96 04/19/16 14:52 167/96 General Appearance: no apparent distress, alert Cardiovascular: normal rate, regular rhythm Respiratory/Chest: lungs clear, normal breath sounds Abdomen: normal bowel sounds, non tender, soft Extremities: no swelling Intake and Output 04/19/16 04/20/16 19:00 07:00 Intake Total 650 ml Output Total 200 ml 500 ml Balance 450 ml -500 ml Intake Oral 50 ml IV Total 600 ml Output Urine Total 200 ml 500 ml Laboratory Tests Test 04/19/16 23:20 04/20/16 05:20 Troponin I < 0.30 ng/mL (<=0.30) < 0.30 ng/mL (<=0.30) White Blood Count 9.6 K/UL (4.8-10.8) Red Blood Count 3.69 M/UL (4.20-5.40) L Hemoglobin 11.1 G/DL (12.0-16.0) L Hematocrit 35.9 % (37.0-47.0) L Mean Corpuscular Volume 97 FL (80-99) Mean Corpuscular Hemoglobin 30.1 PG (27.0-31.0) Mean Corpuscular Hemoglobin Concent 30.9 G/DL (32.0-36.0) L Red Cell Distribution Width 14.1 % (11.6-14.8) Platelet Count 159 K/UL (150-450) Mean Platelet Volume 11.6 FL (6.5-10.1) H Neutrophils (%) (Auto) 74.0 % (45.0-75.0) Lymphocytes (%) (Auto) 18.7 % (20.0-45.0) L Monocytes (%) (Auto) 5.5 % (1.0-10.0) Eosinophils (%) (Auto) 1.4 % (0.0-3.0) Basophils (%) (Auto) 0.4 % (0.0-2.0) Sodium Level 156 mEQ/L (135-145) H Potassium Level 4.0 mEQ/L (3.4-4.9) Chloride Level 116 mEQ/L (98-107) H Carbon Dioxide Level 30 mEQ/L (20-30) Anion Gap 10 (5-15) Blood Urea Nitrogen 36 mg/dL (7-23) H Creatinine 0.6 mg/dL (0.5-0.9) Estimat Glomerular Filtration Rate mL/min (>60) Glucose Level 153 mg/dL (74-106) H Calcium Level 9.0 mg/dL (8.6-10.2) Phosphorus Level 2.1 mg/dL (2.5-4.8) L Magnesium Level 2.3 mg/dL (1.7-2.5) Microbiology Date/Time Source Procedure Growth Status 04/18/16 16:18 Blood Blood Culture - Preliminary NO GROWTH AFTER 24 HOURS Resulted 04/18/16 16:08 Blood Blood Culture - Preliminary NO GROWTH AFTER 24 HOURS Resulted 04/18/16 17:37 Urine,Clean Catch Urine Culture - Final Escherichia Coli Complete ANDREE PROCTOR Apr 20, 2016 14:06
--- NOTE | 2016-04-20 16:50 | Geriatric Progress Note ---
Assessment/Plan Problems: (1) Hypernatremia (2) Dehydration (3) Elevated troponin (4) Episode of generalized weakness (5) Toxic metabolic encephalopathy (6) Leukocytosis (7) Left ventricular systolic dysfunction (8) Cardiac ischemia Assessment/Plan Interval LV dysfunction in setting of volume depletion, with elevation of Troponin, normal CK, MB. Stunned myocardium with high grade CAD vs. completed interval infarct. Volume depletion, hypernatremia, azotemia, improving with IVF. Will supplement Phos slightly. Doubt infectious process, suspect leukocytosis due to cardiac process. However with continue Ceftriaxone for 24-48 hours while status still undetermined. Maintain psychoactive tx for now. Monitor re intake. Discussed with: hospital staff, other - caregiver Subjective Interval Events Patient sleeping, does not awaken. Caregiver reports patient primarily sleeping all day, with limited oral intake, no overt discomfort, SOB, c/o pain. Dr. Cavazos's note reviewed including echo finding of interval development of LV dysfunction - subacute infarction vs. stunned myocardium. Cultures with MRSA screening +, but blood and urine negative at present. Leukocytosis resolved on empiric Ceftriaxone. Hypotension resolved with IV hydration, now IVF decreased due to finding of of decreased EF. Subjective No responses at present. Geriatric Geriatric Last 24 Hour Vital Signs Date Time Temp Pulse Resp B/P Pulse Ox O2 Delivery O2 Flow Rate FiO2 04/20/16 12:28 115/58 04/20/16 11:55 68 04/20/16 11:40 97.2 66 18 115/58 100 Nasal Cannula 2.0 04/20/16 09:14 71 133/77 04/20/16 09:02 97.3 68 18 133/77 100 Nasal Cannula 2.0 04/20/16 08:03 72 04/20/16 08:00 97.3 68 18 133/77 100 Nasal Cannula 2.0 04/20/16 07:30 141/85 04/20/16 04:33 152 141/85 04/20/16 04:00 73 04/20/16 04:00 97.0 73 18 141/85 100 Room Air 04/20/16 00:00 97.7 74 16 150/85 99 Room Air 04/20/16 00:00 74 04/19/16 21:13 83 163/84 04/19/16 20:00 98.2 83 20 163/84 99 Room Air 04/19/16 20:00 80 04/19/16 17:45 179/109 04/19/16 16:39 97.2 100 18 179/109 100 Nasal Cannula 2.0 Intake and Output 04/19/16 04/20/16 19:00 07:00 Intake Total 650 ml Output Total 200 ml 500 ml Balance 450 ml -500 ml Intake Oral 50 ml IV Total 600 ml Output Urine Total 200 ml 500 ml Laboratory Tests Test 04/19/16 23:20 04/20/16 05:20 Troponin I < 0.30 ng/mL (<=0.30) < 0.30 ng/mL (<=0.30) White Blood Count 9.6 K/UL (4.8-10.8) Red Blood Count 3.69 M/UL (4.20-5.40) L Hemoglobin 11.1 G/DL (12.0-16.0) L Hematocrit 35.9 % (37.0-47.0) L Mean Corpuscular Volume 97 FL (80-99) Mean Corpuscular Hemoglobin 30.1 PG (27.0-31.0) Mean Corpuscular Hemoglobin Concent 30.9 G/DL (32.0-36.0) L Red Cell Distribution Width 14.1 % (11.6-14.8) Platelet Count 159 K/UL (150-450) Mean Platelet Volume 11.6 FL (6.5-10.1) H Neutrophils (%) (Auto) 74.0 % (45.0-75.0) Lymphocytes (%) (Auto) 18.7 % (20.0-45.0) L Monocytes (%) (Auto) 5.5 % (1.0-10.0) Eosinophils (%) (Auto) 1.4 % (0.0-3.0) Basophils (%) (Auto) 0.4 % (0.0-2.0) Sodium Level 156 mEQ/L (135-145) H Potassium Level 4.0 mEQ/L (3.4-4.9) Chloride Level 116 mEQ/L (98-107) H Carbon Dioxide Level 30 mEQ/L (20-30) Anion Gap 10 (5-15) Blood Urea Nitrogen 36 mg/dL (7-23) H Creatinine 0.6 mg/dL (0.5-0.9) Estimat Glomerular Filtration Rate mL/min (>60) Glucose Level 153 mg/dL (74-106) H Calcium Level 9.0 mg/dL (8.6-10.2) Phosphorus Level 2.1 mg/dL (2.5-4.8) L Magnesium Level 2.3 mg/dL (1.7-2.5) Current Medications Medications (Trade) Dose Ordered Sig/Remy Route PRN Reason Start Time Stop Time Status Last Admin Dose Admin Amylase/Lipase/ Protease (Pancrease) 2 ea THREE TIMES A DAY ORAL 04/19/16 09:00 05/19/16 08:59 04/20/16 12:28 Artificial Tears 1 drop 1 drop QID BOTH EYES 04/19/16 09:00 05/19/16 08:59 04/20/16 12:28 Aspirin (ASA) 81 mg DAILY ORAL 04/19/16 09:00 05/19/16 08:59 04/20/16 09:15 Atorvastatin Calcium (Lipitor) 10 mg BEDTIME ORAL 04/19/16 21:00 05/19/16 20:59 04/19/16 21:10 Ceftriaxone Sodium 1 gm/ Dextrose 55 ml @ 110 mls/hr Q24H IVPB 04/19/16 18:00 04/26/16 17:59 04/19/16 17:45 Donepezil HCl (Aricept) 5 mg QHS ORAL 04/19/16 21:00 05/19/16 20:59 04/19/16 21:12 Duloxetine HCl (Cymbalta) 30 mg DAILY ORAL 04/19/16 09:00 05/19/16 08:59 04/20/16 09:15 Escitalopram Oxalate (Lexapro) 5 mg QHS ORAL 04/19/16 21:00 05/19/16 20:59 04/19/16 21:12 Heparin Sodium (Porcine) (Heparin 5000 units/ml) 5,000 units EVERY 12 HOURS SUBQ 04/19/16 09:00 05/19/16 08:59 04/20/16 09:39 Memantine (Namenda) 10 mg BID ORAL 04/19/16 09:00 05/19/16 08:59 04/20/16 09:15 Metoprolol Tartrate (Lopressor) 5 mg Q4H PRN IVP hr more 120 for 5 min 04/19/16 15:30 05/19/16 15:29 04/20/16 04:33 Metoprolol Tartrate (Lopressor) 25 mg Q12HR ORAL 04/19/16 15:30 05/19/16 15:29 04/20/16 09:14 Nitroglycerin (Nitro-Bid) 1 inch TID@0600,1200,1800 TOPIC 04/19/16 18:00 05/19/16 17:59 04/20/16 12:28 Pantoprazole (Protonix) 40 mg DAILY IV 04/19/16 09:00 05/19/16 08:59 04/20/16 09:15 Potassium Chloride/Dextrose (KCl/D5W 1000ml) 1,015 ml @ 100 mls/hr Q10H9M IV 04/19/16 08:30 05/19/16 08:29 04/20/16 15:02 Ramelteon (Rozerem) 8 mg QHS ORAL 04/19/16 21:00 05/19/16 20:59 04/19/16 21:10 Timolol Maleate (Timoptic 0.5% Op Soln) 1 drop TWICE A DAY BOTH EYES 04/19/16 18:00 05/19/16 17:59 04/20/16 09:14 Height (Feet): 5 Height (Inches): 2.00 Weight (Pounds): 110 General Appearance: other - sleeping Head: normocephalic Eyes: right anicteric Neck: full range of motion, no mass Respiratory: lungs clear, decreased breath sounds Cardiovascular: regular rate, rhythm Gastrointestinal: normal bowel sounds, non tender, soft, no mass, no organomegaly, non-distended Musculoskeletal: no calf tenderness, other - cool distal LEs Edema: no edema noted Generalized NUBIA MARC Apr 20, 2016 16:49
[2016-04-20] MEDS: cefTRIAXone 1 GM in D5W 55 ML IVPB SCH (17:43)
[2016-04-20] MEDS ORDERED: Potassium Phosphate 30 MM in D5W 275 ML IV ONE (19:00)
--- NOTE | 2016-04-20 19:25 | Wound Care Consultation ---
Wound Assessment Wound Assessment #1: Wound Present on Admission: Yes New Wound: No Status Change of Wound: No Wound Location Body Site Modif: left, upper, anterior Wound Location Body Site: arm Wound Type: traumatic injury Susan Test: Does not Susan Traumatic Injury Wounds: Skin Tear Wound Thickness: Partial Thickness Percent of Wound Purple/Maroon: 100 Wound Drainage Amount: None Wound Drainage Odor: None/Absent Tissue Surrounding Wound: Erythemic Wound General Appearance: Reddened Wound Assessment #2: Wound Number: #2 Wound Present on Admission: Yes New Wound: No Status Change of Wound: No Wound Location Body Site Modif: right, lower, medial Wound Location Body Site: leg Wound Type: traumatic injury Susan Test: Does not Susan Traumatic Injury Wounds: Skin Tear Wound Thickness: Partial Thickness Percent of Wound Purple/Maroon: 100 Wound Drainage Amount: None Wound Drainage Odor: None/Absent Tissue Surrounding Wound: Erythemic Wound General Appearance: Reddened Wound Comment #1 Left upper arm skin tear with steri strips #2 Right lower medial leg skin tear with steri strips Recommendation -Keep clean and dry -Local wound care per protocol -Optimize nutrition -Assess and f/u accordingly for any changes ANGELITO BOONE RN Apr 20, 2016 19:25
[2016-04-20] MEDS: Donepezil 5mg Tab ORAL SCH (21:17)
[2016-04-20] MEDS: Ramelteon 8mg tab (Approved for Delirium use only) ORAL SCH (21:17)
[2016-04-21 00:30] VITALS: BP 104/56
[2016-04-21 04:30] VITALS: BP 100/59
[2016-04-21] MEDS: Nitroglycerin 2% oint pkt TOPIC SCH ×3 (06:00→18:33)
[2016-04-21 08:00] VITALS: BP 108/57
[2016-04-21 08:09] LABS: ANION GAP 10 (5-15); BASOPHILS % (AUTO) 0.4 % (0.0-2.0); CALCIUM 8.9 mg/dL (8.6-10.2); CARBON DIOXIDE 28 mEQ/L (20-30); CHLORIDE 108 mEQ/L (98-107); CREATININE 0.6 mg/dL (0.5-0.9); EOSINOPHILS % (AUTO) 2.8 % (0.0-3.0); HEMOLYSIS 3; LYMPHOCYTES % (AUTO) 22.6 % (20.0-45.0); MEAN CORPUSCULAR HEMOGLOBIN 30.8 PG (27.0-31.0); MEAN CORPUSCULAR HGB CONC 31.7 G/DL (32.0-36.0); MEAN CORPUSCULAR VOLUME 97 FL (80-99); MEAN PLATELET VOLUME 10.8 FL (6.5-10.1); MONOCYTES % (AUTO) 5.7 % (1.0-10.0); NEUTROPHILS % (AUTO) 68.4 % (45.0-75.0); PLATELET COUNT 135 K/UL (150-450); POTASSIUM 4.7 mEQ/L (3.4-4.9); RED BLOOD COUNT 3.37 M/UL (4.20-5.40); RED CELL DISTRIBUTION WIDTH 13.9 % (11.6-14.8); SODIUM 146 mEQ/L (135-145); WHITE BLOOD COUNT 8.4 K/UL (4.8-10.8)
[2016-04-21] MEDS: Heparin 5000 units/ml inj SUBQ SCH ×2 (09:00→21:11)
[2016-04-21] MEDS: Metoprolol 25mg tab ORAL SCH ×2 (09:00→21:14)
[2016-04-21] MEDS: Timolol 0.5% Op Soln 2.5ml BOTH EYES SCH ×2 (09:24→18:34)
[2016-04-21] MEDS: Artificial Tears 1.4% Op Soln BOTH EYES SCH ×4 (09:24→21:09)
[2016-04-21] MEDS: Pantoprazole Inj IV SCH (09:25)
[2016-04-21] MEDS: Aspirin Baby 81mg ORAL SCH (09:26)
[2016-04-21] MEDS: Pancrease Cap ORAL SCH ×3 (09:26→18:33)
[2016-04-21] MEDS: Memantine 10mg tab ORAL SCH ×2 (09:26→18:33)
[2016-04-21] MEDS: DULoxetine 30mg cap ORAL SCH (09:26)
[2016-04-21 12:00] VITALS: BP 123/69
--- NOTE | 2016-04-21 13:59 | Cardiology Report ---
APPROVED REPORT EKG Measurement Heart [id number] Sinus rhythm with premature supraventricular complexes T wave abnormality, consider inferior ischemia T wave abnormality, consider anterolateral ischemia Prolonged QT Abnormal ECG
--- NOTE | 2016-04-21 14:00 | Cardiology Report ---
APPROVED REPORT EKG Measurement Heart [id number] Sinus tachycardia T wave abnormality, consider inferior ischemia T wave abnormality, consider anterolateral ischemia Abnormal ECG
--- NOTE | 2016-04-21 14:12 | Cardiology Report ---
APPROVED REPORT EXAM: Two-dimensional and M-mode echocardiogram with Doppler and color Doppler. INDICATION Chest Pain M-Mode DIMENSIONS IVSd1.1 (0.7-1.1cm)Left Atrium (MM)2.1 (1.6-4.0cm) LVDd3.7 (3.5-5.6cm)Aortic Root3.1 (2.0-3.7cm) PWd1.0 (0.7-1.1cm)Aortic Cusp Exc.2.0 (1.5-2.0cm) LVDs2.8 (2.5-4.0cm) PWs1.4 cm Normal left ventricular chamber size. Global left ventricular hypokinesis. Left ventricular ejection fraction estimated to be 50-55 %. No evidence of left ventricular hypertrophy. Anterior Echo-free space, may be due to pericardial fat or effusion. All other cardiac chamber sizes are within normal limits. Mild focal aortic valve sclerosis with adequate cusp excursion. Mildly thickened mitral valve leaflets with normal excursion. Mild mitral annulus and aortic root calcification. Normal pulmonic valve structure. Normal tricuspid valve structure. A color flow and spectral Doppler study was performed and revealed: Mild to moderate aortic regurgitation. Moderate mitral regurgitation. Mitral diastolic velocities suggest reduced left ventricular relaxation (Grade I). Moderate tricuspid regurgitation. Tricuspid systolic velocities suggests peak right ventricular systolic pressure of 36 mmHg, consistent with mild pulmonary hypertension. Trace pulmonic regurgitation present.
[2016-04-21 16:00] VITALS: BP 107/70
--- NOTE | 2016-04-21 16:44 | Geriatric Progress Note ---
Assessment/Plan Problems: (1) Hypernatremia (2) Dehydration (3) Elevated troponin (4) Episode of generalized weakness (5) Toxic metabolic encephalopathy (6) Leukocytosis (7) Left ventricular systolic dysfunction (8) Cardiac ischemia Assessment/Plan Functionally slightly improved, but still quite weak. Intake slightly better, more alert. Still appears fairly weak to attempt mobilization. Given dysphagia will downgrade texture and add more moisture. Doubt significant infectious process. Will now d/c antibiotics and monitor. Discussed with step-son Sherman re status, prognosis, tx options, d/c plans. Need to observe to see if patient can maintain intake, safe for home care. Continue IVF to correct volume, electrolytes. Discussed with: patient, hospital staff, other - caregiver Subjective Interval Events Patient resting in bed with little verbal response, eyes generally closed. However, eating slightly better, although care connector describes some effort in swallowing. Caregiver also reports nl b.m. today. Staff reports following instructions better. Labs with resolution of leukocytosis, improvement in hypernatremia, azotemia. Subjective Denies pain or SOB, but responses limited. Geriatric Geriatric Last 24 Hour Vital Signs Date Time Temp Pulse Resp B/P Pulse Ox O2 Delivery O2 Flow Rate FiO2 04/21/16 12:29 129/69 04/21/16 12:00 65 04/21/16 12:00 96.8 65 17 123/69 100 Room Air 04/21/16 09:00 68 108/57 04/21/16 08:00 96.5 68 16 108/57 100 Room Air 04/21/16 08:00 71 04/21/16 06:00 100/56 04/21/16 04:30 97.0 70 20 100/59 99 Nasal Cannula 2.0 04/21/16 04:00 67 04/21/16 00:30 97.0 67 18 104/56 Nasal Cannula 2.0 04/21/16 00:00 65 04/20/16 21:00 62 103/55 04/20/16 20:00 68 04/20/16 20:00 96.8 66 20 104/56 98 Nasal Cannula 2.0 04/20/16 17:44 112/62 Intake and Output 04/20/16 04/21/16 19:00 07:00 Intake Total 1580 ml 1100 ml Output Total 150 ml 200 ml Balance 1430 ml 900 ml Intake Oral 170 ml IV Total 1410 ml 1100 ml Output Urine Total 150 ml 200 ml Laboratory Tests Test 04/21/16 06:35 White Blood Count 8.4 K/UL (4.8-10.8) Red Blood Count 3.37 M/UL (4.20-5.40) L Hemoglobin 10.4 G/DL (12.0-16.0) L Hematocrit 32.8 % (37.0-47.0) L Mean Corpuscular Volume 97 FL (80-99) Mean Corpuscular Hemoglobin 30.8 PG (27.0-31.0) Mean Corpuscular Hemoglobin Concent 31.7 G/DL (32.0-36.0) L Red Cell Distribution Width 13.9 % (11.6-14.8) Platelet Count 135 K/UL (150-450) L Mean Platelet Volume 10.8 FL (6.5-10.1) H Neutrophils (%) (Auto) 68.4 % (45.0-75.0) Lymphocytes (%) (Auto) 22.6 % (20.0-45.0) Monocytes (%) (Auto) 5.7 % (1.0-10.0) Eosinophils (%) (Auto) 2.8 % (0.0-3.0) Basophils (%) (Auto) 0.4 % (0.0-2.0) Sodium Level 146 mEQ/L (135-145) H Potassium Level 4.7 mEQ/L (3.4-4.9) Chloride Level 108 mEQ/L (98-107) H Carbon Dioxide Level 28 mEQ/L (20-30) Anion Gap 10 (5-15) Blood Urea Nitrogen 27 mg/dL (7-23) H Creatinine 0.6 mg/dL (0.5-0.9) Estimat Glomerular Filtration Rate mL/min (>60) Glucose Level 135 mg/dL (74-106) H Calcium Level 8.9 mg/dL (8.6-10.2) Current Medications Medications (Trade) Dose Ordered Sig/Remy Route PRN Reason Start Time Stop Time Status Last Admin Dose Admin Amylase/Lipase/ Protease (Pancrease) 2 ea THREE TIMES A DAY ORAL 04/19/16 09:00 05/19/16 08:59 04/21/16 12:30 Artificial Tears 1 drop 1 drop QID BOTH EYES 04/19/16 09:00 05/19/16 08:59 04/21/16 12:30 Aspirin (ASA) 81 mg DAILY ORAL 04/19/16 09:00 05/19/16 08:59 04/21/16 09:26 Atorvastatin Calcium (Lipitor) 10 mg BEDTIME ORAL 04/19/16 21:00 05/19/16 20:59 04/20/16 21:17 Ceftriaxone Sodium/Dextrose (Rocephin/D5W) 55 ml @ 110 mls/hr Q24H IVPB 04/19/16 18:00 04/26/16 17:59 04/20/16 17:43 Donepezil HCl (Aricept) 5 mg QHS ORAL 04/19/16 21:00 05/19/16 20:59 04/20/16 21:17 Duloxetine HCl (Cymbalta) 30 mg DAILY ORAL 04/19/16 09:00 05/19/16 08:59 04/21/16 09:26 Escitalopram Oxalate (Lexapro) 5 mg QHS ORAL 04/19/16 21:00 05/19/16 20:59 04/20/16 21:17 Heparin Sodium (Porcine) (Heparin 5000 units/ml) 5,000 units EVERY 12 HOURS SUBQ 04/19/16 09:00 05/19/16 08:59 04/20/16 21:17 Memantine (Namenda) 10 mg BID ORAL 04/19/16 09:00 05/19/16 08:59 04/21/16 09:26 Metoprolol Tartrate (Lopressor) 25 mg Q12HR ORAL 04/19/16 15:30 05/19/16 15:29 04/20/16 09:14 Metoprolol Tartrate 5 mg 5 mg Q4H PRN IVP hr more 120 for 5 min 04/19/16 15:30 05/19/16 15:29 04/20/16 04:33 Nitroglycerin (Nitro-Bid) 1 inch TID@0600,1200,1800 TOPIC 04/19/16 18:00 05/19/16 17:59 04/21/16 12:29 Pantoprazole (Protonix) 40 mg DAILY IV 04/19/16 09:00 05/19/16 08:59 04/21/16 09:25 Potassium Chloride/Dextrose (KCl/D5W 1000ml) 1,015 ml @ 75 mls/hr [id number] IV 04/20/16 17:00 05/20/16 16:59 04/21/16 09:29 Ramelteon (Rozerem) 8 mg QHS ORAL 04/19/16 21:00 05/19/16 20:59 04/20/16 21:17 Timolol Maleate (Timoptic 0.5% Op Soln) 1 drop TWICE A DAY BOTH EYES 04/19/16 18:00 05/19/16 17:59 04/21/16 09:24 Height (Feet): 5 Height (Inches): 2.00 Weight (Pounds): 110 General Appearance: no apparent distress, other - appears quite fatigued Head: normocephalic Eyes: bilateral anicteric ENT: normal voice Neck: full range of motion, no mass Respiratory: lungs clear, decreased breath sounds Cardiovascular: regular rate, rhythm Gastrointestinal: normal bowel sounds, non tender, soft, no mass, no organomegaly, non-distended Musculoskeletal: no calf tenderness Edema: no edema noted Generalized Neurologic: no new focality Skin: wounds - as documented by wound care. NUBIA MARC Apr 21, 2016 16:44
[2016-04-21] MEDS: cefTRIAXone 1 GM in D5W 55 ML IVPB SCH (18:32)
--- NOTE | 2016-04-21 19:43 | Cardiology Progress Note ---
Assessment/Plan Assessment/Plan nstemi toxic metabolic encephalopathy hypernatremia volume depletion demetial recent compression fx svt lv systolic dysfunction mild per report (mild) ef 50-55% dnr conservative rxn d/w family no invasive haley Ecotrin ntp statin bb tele personally reviewed no recurrent svt na improved trop now normal ekg noted resolution of many of the t wave changes mentation much improved dc tele tomorrow d/w home health care worker Subjective Cardiovascular: Denies: chest pain, lightheadedness, palpitations Respiratory: Denies: shortness of breath Gastrointestinal/Abdominal: Denies: abdominal pain Genitourinary: Denies: burning Objective Last 24 Hour Vital Signs Date Time Temp Pulse Resp B/P Pulse Ox O2 Delivery O2 Flow Rate FiO2 04/21/16 18:33 107/70 04/21/16 16:00 97.9 65 18 107/70 93 Nasal Cannula 2.5 04/21/16 12:29 129/69 04/21/16 12:00 65 04/21/16 12:00 96.8 65 17 123/69 100 Room Air 04/21/16 09:00 68 108/57 04/21/16 08:00 96.5 68 16 108/57 100 Room Air 04/21/16 08:00 71 04/21/16 06:00 100/56 04/21/16 04:30 97.0 70 20 100/59 99 Nasal Cannula 2.0 04/21/16 04:00 67 04/21/16 00:30 97.0 67 18 104/56 Nasal Cannula 2.0 04/21/16 00:00 65 04/20/16 21:00 62 103/55 04/20/16 20:00 68 04/20/16 20:00 96.8 66 20 104/56 98 Nasal Cannula 2.0 General Appearance: no apparent distress, alert Neck: supple Cardiovascular: normal rate, regular rhythm Respiratory/Chest: lungs clear, normal breath sounds Abdomen: normal bowel sounds, non tender, soft Extremities: no swelling Intake and Output 04/20/16 04/21/16 19:00 07:00 Intake Total 1580 ml 1100 ml Output Total 150 ml 200 ml Balance 1430 ml 900 ml Intake Oral 170 ml IV Total 1410 ml 1100 ml Output Urine Total 150 ml 200 ml Laboratory Tests Test 04/21/16 06:35 White Blood Count 8.4 K/UL (4.8-10.8) Red Blood Count 3.37 M/UL (4.20-5.40) L Hemoglobin 10.4 G/DL (12.0-16.0) L Hematocrit 32.8 % (37.0-47.0) L Mean Corpuscular Volume 97 FL (80-99) Mean Corpuscular Hemoglobin 30.8 PG (27.0-31.0) Mean Corpuscular Hemoglobin Concent 31.7 G/DL (32.0-36.0) L Red Cell Distribution Width 13.9 % (11.6-14.8) Platelet Count 135 K/UL (150-450) L Mean Platelet Volume 10.8 FL (6.5-10.1) H Neutrophils (%) (Auto) 68.4 % (45.0-75.0) Lymphocytes (%) (Auto) 22.6 % (20.0-45.0) Monocytes (%) (Auto) 5.7 % (1.0-10.0) Eosinophils (%) (Auto) 2.8 % (0.0-3.0) Basophils (%) (Auto) 0.4 % (0.0-2.0) Sodium Level 146 mEQ/L (135-145) H Potassium Level 4.7 mEQ/L (3.4-4.9) Chloride Level 108 mEQ/L (98-107) H Carbon Dioxide Level 28 mEQ/L (20-30) Anion Gap 10 (5-15) Blood Urea Nitrogen 27 mg/dL (7-23) H Creatinine 0.6 mg/dL (0.5-0.9) Estimat Glomerular Filtration Rate mL/min (>60) Glucose Level 135 mg/dL (74-106) H Calcium Level 8.9 mg/dL (8.6-10.2) ANDREE PROCTOR Apr 21, 2016 19:43
--- NOTE | 2016-04-21 19:51 | Cardiology Report ---
APPROVED REPORT EKG Measurement Heart [id number] OK [id number] Normal sinus rhythm Nonspecific T wave abnormality Abnormal ECG
[2016-04-21 20:00] VITALS: BP 107/65
[2016-04-21] MEDS: Donepezil 5mg Tab ORAL SCH (21:11)
[2016-04-21] MEDS: Ramelteon 8mg tab (Approved for Delirium use only) ORAL SCH (21:11)
[2016-04-22] VITALS (7 sets, daily range): BP systolic 106–140; BP diastolic 56–72
[2016-04-22] MEDS: Nitroglycerin 2% oint pkt TOPIC SCH ×3 (05:59→19:18)
[2016-04-22 07:54] LABS: BASOPHILS % (AUTO) 0.5 % (0.0-2.0); EOSINOPHILS % (AUTO) 2.2 % (0.0-3.0); LYMPHOCYTES % (AUTO) 21.5 % (20.0-45.0); MEAN CORPUSCULAR HEMOGLOBIN 29.9 PG (27.0-31.0); MEAN CORPUSCULAR HGB CONC 31.6 G/DL (32.0-36.0); MEAN CORPUSCULAR VOLUME 95 FL (80-99); MEAN PLATELET VOLUME 10.7 FL (6.5-10.1); MONOCYTES % (AUTO) 4.9 % (1.0-10.0); NEUTROPHILS % (AUTO) 70.9 % (45.0-75.0); PLATELET COUNT 142 K/UL (150-450); RED BLOOD COUNT 3.31 M/UL (4.20-5.40); RED CELL DISTRIBUTION WIDTH 13.7 % (11.6-14.8)
[2016-04-22 08:18] LABS: ANION GAP 13 (5-15); CALCIUM 9.1 mg/dL (8.6-10.2); CARBON DIOXIDE 26 mEQ/L (20-30); CHLORIDE 104 mEQ/L (98-107); CREATININE 0.6 mg/dL (0.5-0.9); HEMOLYSIS 9; POTASSIUM 4.7 mEQ/L (3.4-4.9); SODIUM 143 mEQ/L (135-145)
[2016-04-22] MEDS: Heparin 5000 units/ml inj SUBQ SCH ×2 (09:00→20:33)
[2016-04-22] MEDS: Metoprolol 25mg tab ORAL SCH ×2 (09:00→20:32)
[2016-04-22] MEDS: Artificial Tears 1.4% Op Soln BOTH EYES SCH ×4 (09:00→20:31)
[2016-04-22] MEDS: Memantine 10mg tab ORAL SCH ×2 (09:01→19:17)
[2016-04-22] MEDS: Pancrease Cap ORAL SCH ×3 (09:01→20:41)
[2016-04-22] MEDS: Aspirin Baby 81mg ORAL SCH (09:01)
[2016-04-22] MEDS: Timolol 0.5% Op Soln 2.5ml BOTH EYES SCH ×2 (09:01→18:00)
[2016-04-22] MEDS: Pantoprazole Inj IV SCH (09:06)
[2016-04-22] MEDS: DULoxetine 30mg cap ORAL SCH (09:06)
--- NOTE | 2016-04-22 10:30 | Cardiology Progress Note ---
Assessment/Plan Assessment/Plan nstemi toxic metabolic encephalopathy hypernatremia volume depletion demetial recent compression fx svt lv systolic dysfunction mild per report (mild) ef 50-55% dnr conservative rxn d/w family no invasive haley Ecotrin ntp statin bb tele personally reviewed no recurrent svt na improved trop now normal ekg noted resolution of many of the t wave changes mentation much improved dc tele d/w care services manager hgb lower probabe dilutional will leave to dr hernandez Subjective Cardiovascular: Denies: chest pain Respiratory: Denies: shortness of breath Gastrointestinal/Abdominal: Denies: abdominal pain Genitourinary: Denies: burning Objective Last 24 Hour Vital Signs Date Time Temp Pulse Resp B/P Pulse Ox O2 Delivery O2 Flow Rate FiO2 04/22/16 09:00 59 124/65 04/22/16 08:00 96.9 59 17 126/65 96 Nasal Cannula 2.0 04/22/16 05:59 125/68 04/22/16 04:30 97.0 67 20 109/56 95 Room Air 04/22/16 04:00 59 04/22/16 00:00 70 04/22/16 00:00 97.2 77 20 113/72 100 Room Air 04/21/16 23:09 100 Nasal Cannula 3.0 32 04/21/16 23:09 Nasal Cannula 3.0 32 04/21/16 21:14 65 107/70 04/21/16 20:00 69 18 107/65 Nasal Cannula 2.0 100 04/21/16 20:00 66 04/21/16 18:33 107/70 04/21/16 16:00 97.9 65 18 107/70 93 Nasal Cannula 2.5 04/21/16 16:00 67 04/21/16 12:29 129/69 04/21/16 12:00 65 04/21/16 12:00 96.8 65 17 123/69 100 Room Air General Appearance: no apparent distress, alert Neck: supple Cardiovascular: normal rate, regular rhythm Respiratory/Chest: lungs clear, normal breath sounds Abdomen: normal bowel sounds, non tender, soft Extremities: no swelling Intake and Output 04/21/16 04/22/16 19:00 07:00 Intake Total 1145 ml 600 ml Output Total 475 ml 250 ml Balance 670 ml 350 ml Intake Oral 580 ml IV Total 565 ml 600 ml Output Urine Total 475 ml 250 ml Laboratory Tests Test 04/22/16 07:21 White Blood Count 8.0 K/UL (4.8-10.8) Red Blood Count 3.31 M/UL (4.20-5.40) L Hemoglobin 9.9 G/DL (12.0-16.0) L Hematocrit 31.4 % (37.0-47.0) L Mean Corpuscular Volume 95 FL (80-99) Mean Corpuscular Hemoglobin 29.9 PG (27.0-31.0) Mean Corpuscular Hemoglobin Concent 31.6 G/DL (32.0-36.0) L Red Cell Distribution Width 13.7 % (11.6-14.8) Platelet Count 142 K/UL (150-450) L Mean Platelet Volume 10.7 FL (6.5-10.1) H Neutrophils (%) (Auto) 70.9 % (45.0-75.0) Lymphocytes (%) (Auto) 21.5 % (20.0-45.0) Monocytes (%) (Auto) 4.9 % (1.0-10.0) Eosinophils (%) (Auto) 2.2 % (0.0-3.0) Basophils (%) (Auto) 0.5 % (0.0-2.0) Sodium Level 143 mEQ/L (135-145) Potassium Level 4.7 mEQ/L (3.4-4.9) Chloride Level 104 mEQ/L (98-107) Carbon Dioxide Level 26 mEQ/L (20-30) Anion Gap 13 (5-15) Blood Urea Nitrogen 14 mg/dL (7-23) Creatinine 0.6 mg/dL (0.5-0.9) Estimat Glomerular Filtration Rate mL/min (>60) Glucose Level 109 mg/dL (74-106) H Calcium Level 9.1 mg/dL (8.6-10.2) ANDREE PROCTOR Apr 22, 2016 10:30
[2016-04-22] MEDS ORDERED: Metoprolol 5mg/5ml Inj IVP PRN (15:30)
--- NOTE | 2016-04-22 16:51 | Geriatric Progress Note ---
Assessment/Plan Problems: (1) Hypernatremia (2) Dehydration (3) Elevated troponin (4) Episode of generalized weakness (5) Toxic metabolic encephalopathy (6) Leukocytosis (7) Left ventricular systolic dysfunction (8) Cardiac ischemia Assessment/Plan Now appears cardiovascularly and metabolically stable but lethargic, weak. Will d/c Rozerem, decrease Cymbalta, d/c IVF, d/c memantine, to minimize sedation and GI adverse effects. Discussed with caregiver, who reports patient too weak to return directly to home. Discussed with surrogate, Chong Moses, he concurs with attempt at strengthening , stabilization at [facility] before returning home. D/c planning ordered for possible d/c tomorrow. Recheck labs in am. Discussed with: hospital staff, other - caregiver Subjective Interval Events Patient sleeping. Caregiver reports still sleeping a lot, oral intake slightly better, 2 normal b.m.'s today. Normally responsive when awake. No apparent discomfort. Still some cough, swallowing issues when eating. Labs stable with azotemia resolved. Subjective Sleeping, not providing response to ROS. Geriatric Geriatric Last 24 Hour Vital Signs Date Time Temp Pulse Resp B/P Pulse Ox O2 Delivery O2 Flow Rate FiO2 04/22/16 12:20 124/65 04/22/16 12:00 98.0 103 17 140/72 98 Room Air 04/22/16 12:00 66 04/22/16 09:00 59 124/65 04/22/16 08:00 96.9 59 17 126/65 96 Nasal Cannula 2.0 04/22/16 08:00 70 04/22/16 05:59 125/68 04/22/16 04:30 97.0 67 20 109/56 95 Room Air 04/22/16 04:00 59 04/22/16 00:00 70 04/22/16 00:00 97.2 77 20 113/72 100 Room Air 04/21/16 23:09 100 Nasal Cannula 3.0 32 04/21/16 23:09 Nasal Cannula 3.0 32 04/21/16 21:14 65 107/70 04/21/16 20:00 69 18 107/65 Nasal Cannula 2.0 100 04/21/16 20:00 66 04/21/16 18:33 107/70 Intake and Output 04/21/16 04/22/16 19:00 07:00 Intake Total 1145 ml 600 ml Output Total 475 ml 250 ml Balance 670 ml 350 ml Intake Oral 580 ml IV Total 565 ml 600 ml Output Urine Total 475 ml 250 ml Laboratory Tests Test 04/22/16 07:21 White Blood Count 8.0 K/UL (4.8-10.8) Red Blood Count 3.31 M/UL (4.20-5.40) L Hemoglobin 9.9 G/DL (12.0-16.0) L Hematocrit 31.4 % (37.0-47.0) L Mean Corpuscular Volume 95 FL (80-99) Mean Corpuscular Hemoglobin 29.9 PG (27.0-31.0) Mean Corpuscular Hemoglobin Concent 31.6 G/DL (32.0-36.0) L Red Cell Distribution Width 13.7 % (11.6-14.8) Platelet Count 142 K/UL (150-450) L Mean Platelet Volume 10.7 FL (6.5-10.1) H Neutrophils (%) (Auto) 70.9 % (45.0-75.0) Lymphocytes (%) (Auto) 21.5 % (20.0-45.0) Monocytes (%) (Auto) 4.9 % (1.0-10.0) Eosinophils (%) (Auto) 2.2 % (0.0-3.0) Basophils (%) (Auto) 0.5 % (0.0-2.0) Sodium Level 143 mEQ/L (135-145) Potassium Level 4.7 mEQ/L (3.4-4.9) Chloride Level 104 mEQ/L (98-107) Carbon Dioxide Level 26 mEQ/L (20-30) Anion Gap 13 (5-15) Blood Urea Nitrogen 14 mg/dL (7-23) Creatinine 0.6 mg/dL (0.5-0.9) Estimat Glomerular Filtration Rate mL/min (>60) Glucose Level 109 mg/dL (74-106) H Calcium Level 9.1 mg/dL (8.6-10.2) Current Medications Medications (Trade) Dose Ordered Sig/Remy Route PRN Reason Start Time Stop Time Status Last Admin Dose Admin Amylase/Lipase/ Protease (Pancrease) 2 ea THREE TIMES A DAY ORAL 04/22/16 18:00 05/22/16 17:59 UNV Artificial Tears (Akwa-Tears) 1 drop QID BOTH EYES 04/22/16 18:00 05/22/16 17:59 UNV Aspirin (ASA) 81 mg DAILY ORAL 04/23/16 09:00 05/23/16 08:59 UNV Atorvastatin Calcium (Lipitor) 10 mg BEDTIME ORAL 04/22/16 21:00 05/22/16 20:59 UNV Donepezil HCl (Aricept) 5 mg QHS ORAL 04/22/16 21:00 05/22/16 20:59 UNV Duloxetine HCl (Cymbalta) 30 mg DAILY ORAL 04/23/16 09:00 05/23/16 08:59 UNV Escitalopram Oxalate (Lexapro) 5 mg QHS ORAL 04/22/16 21:00 05/22/16 20:59 UNV Heparin Sodium (Porcine) (Heparin 5000 units/ml) 5,000 units EVERY 12 HOURS SUBQ 04/22/16 21:00 05/22/16 20:59 UNV Memantine (Namenda) 10 mg BID ORAL 04/22/16 18:00 05/22/16 17:59 UNV Metoprolol Tartrate (Lopressor) 5 mg Q4H PRN IVP hr more 120 for 5 min 04/22/16 15:30 05/22/16 15:29 UNV Metoprolol Tartrate (Lopressor) 25 mg Q12HR ORAL 04/22/16 21:00 05/22/16 20:59 UNV Nitroglycerin (Nitro-Bid) 1 inch TID@0600,1200,1800 TOPIC 04/22/16 18:00 05/22/16 17:59 UNV Pantoprazole (Protonix) 40 mg DAILY IV 04/23/16 09:00 05/23/16 08:59 UNV Potassium Chloride/Dextrose (KCl/D5W 1000ml) 1,015 ml @ 75 mls/hr [id number] IV 04/22/16 14:30 05/22/16 14:29 UNV Ramelteon (Rozerem) 8 mg QHS ORAL 04/22/16 21:00 05/22/16 20:59 UNV Timolol Maleate (Timoptic 0.5% Op Soln) 1 drop TWICE A DAY BOTH EYES 04/22/16 18:00 05/22/16 17:59 UNV Height (Feet): 5 Height (Inches): 2.00 Weight (Pounds): 110 General Appearance: other - sleeping Head: normocephalic Eyes: bilateral anicteric Neck: full range of motion, no mass Respiratory: lungs clear Cardiovascular: regular rate, rhythm Gastrointestinal: normal bowel sounds, non tender, soft, no mass, no organomegaly, non-distended Musculoskeletal: no calf tenderness Edema: no edema noted Generalized NUBIA MARC Apr 22, 2016 16:51
[2016-04-22] MEDS ORDERED: Ramelteon 8mg tab (Approved for Delirium use only) ORAL SCH (21:00)
[2016-04-22] MEDS ORDERED: Donepezil 5mg Tab ORAL SCH (21:00)
[2016-04-23] VITALS: BP 108/60
[2016-04-23 04:00] VITALS: BP 122/63
[2016-04-23] MEDS: Nitroglycerin 2% oint pkt TOPIC SCH ×2 (05:46→12:47)
[2016-04-23 07:14] LABS: BASOPHILS % (AUTO) 0.6 % (0.0-2.0); EOSINOPHILS % (AUTO) 2.2 % (0.0-3.0); LYMPHOCYTES % (AUTO) 18.7 % (20.0-45.0); MEAN CORPUSCULAR HEMOGLOBIN 30.5 PG (27.0-31.0); MEAN CORPUSCULAR HGB CONC 31.8 G/DL (32.0-36.0); MEAN CORPUSCULAR VOLUME 96 FL (80-99); MEAN PLATELET VOLUME 11.2 FL (6.5-10.1); MONOCYTES % (AUTO) 4.6 % (1.0-10.0); NEUTROPHILS % (AUTO) 73.9 % (45.0-75.0); PLATELET COUNT 140 K/UL (150-450); RED BLOOD COUNT 3.48 M/UL (4.20-5.40); RED CELL DISTRIBUTION WIDTH 13.4 % (11.6-14.8); WHITE BLOOD COUNT 8.3 K/UL (4.8-10.8)
[2016-04-23 07:32] LABS: ANION GAP 12 (5-15); CALCIUM 9.6 mg/dL (8.6-10.2); CARBON DIOXIDE 27 mEQ/L (20-30); CHLORIDE 105 mEQ/L (98-107); CREATININE 0.6 mg/dL (0.5-0.9); HEMOLYSIS 6; POTASSIUM 4.5 mEQ/L (3.4-4.9); SODIUM 144 mEQ/L (135-145)
[2016-04-23 08:07] VITALS: BP 110/58
[2016-04-23] MEDS: Metoprolol 25mg tab ORAL SCH (08:20)
[2016-04-23] MEDS: Pancrease Cap ORAL SCH ×2 (08:20→12:48)
[2016-04-23] MEDS: Memantine 10mg tab ORAL SCH (08:21)
[2016-04-23] MEDS ORDERED: DULoxetine 30mg cap ORAL SCH (09:00)
[2016-04-23] MEDS ORDERED: Pantoprazole Inj IV SCH (09:00)
[2016-04-23] MEDS ORDERED: Aspirin Baby 81mg ORAL SCH (09:00)
[2016-04-23] MEDS: Heparin 5000 units/ml inj SUBQ SCH (09:00)
[2016-04-23] MEDS ORDERED: Escitalopram Oxalate 5mg tab ORAL SCH (09:00)
[2016-04-23] MEDS: Artificial Tears 1.4% Op Soln BOTH EYES SCH ×2 (10:13→12:47)
[2016-04-23] MEDS: Timolol 0.5% Op Soln 2.5ml BOTH EYES SCH ×2 (10:14→12:47)
[2016-04-23 11:36] VITALS: BP 106/61
--- NOTE | 2016-04-23 15:01 | Geriatric Progress Note ---
Assessment/Plan Problems: (1) Hypernatremia (2) Dehydration (3) Elevated troponin (4) Episode of generalized weakness (5) Toxic metabolic encephalopathy (6) Leukocytosis (7) Left ventricular systolic dysfunction (8) Cardiac ischemia Assessment/Plan Patient improving, now appears stable for [facility]. Will transfer to [facility] to attempt to improve cardiovascular status. Discussed with Dr. Cavazos who feels patient does not have cardiac contraindication to P.T. Likely will attempt to further prune medications including possibly Aricept due to issues with intake. D/c Noel. Dictated #[id number] Discussed with: patient, other - regional construction manager, caregiver Subjective Interval Events Patient considerably more alert, cheerful. Denies c/o. Still some residual dysphagia reported, but patient ate herself per caregiver. Patient does not recall becoming ill at home. Labs stabilizing. Constitutional: Denies: chills, pain, sweats Respiratory: Denies: shortness of breath Cardiovascular: Denies: chest pain, palpitations Gastrointestinal/Abdominal: Denies: abdominal pain Genitourinary: Denies: dysuria Geriatric Geriatric Last 24 Hour Vital Signs Date Time Temp Pulse Resp B/P Pulse Ox O2 Delivery O2 Flow Rate FiO2 04/23/16 12:47 106/61 04/23/16 11:36 97.0 61 21 106/61 95 Nasal Cannula 2.0 04/23/16 08:20 96 130/76 04/23/16 08:07 97.9 70 21 110/58 96 Nasal Cannula 2.0 04/23/16 07:56 Nasal Cannula 2.0 28 04/23/16 07:55 100 Nasal Cannula 2.0 28 04/23/16 05:46 116/59 04/23/16 04:00 96.8 62 20 122/63 100 Nasal Cannula 04/23/16 00:00 97.5 66 20 108/60 100 Nasal Cannula 2.0 04/22/16 20:32 63 106/58 04/22/16 19:18 106/58 04/22/16 19:00 96.9 68 18 109/61 100 Nasal Cannula 2.0 04/22/16 16:00 96.1 63 18 106/58 100 Room Air Intake and Output 04/22/16 04/23/16 19:00 07:00 Intake Total 460 ml 340 ml Output Total 220 ml 900 ml Balance 240 ml -560 ml Intake Oral 460 ml 340 ml Output Urine Total 220 ml 900 ml # Bowel Movements 2 Laboratory Tests Test 04/23/16 04:50 White Blood Count 8.3 K/UL (4.8-10.8) Red Blood Count 3.48 M/UL (4.20-5.40) L Hemoglobin 10.6 G/DL (12.0-16.0) L Hematocrit 33.3 % (37.0-47.0) L Mean Corpuscular Volume 96 FL (80-99) Mean Corpuscular Hemoglobin 30.5 PG (27.0-31.0) Mean Corpuscular Hemoglobin Concent 31.8 G/DL (32.0-36.0) L Red Cell Distribution Width 13.4 % (11.6-14.8) Platelet Count 140 K/UL (150-450) L Mean Platelet Volume 11.2 FL (6.5-10.1) H Neutrophils (%) (Auto) 73.9 % (45.0-75.0) Lymphocytes (%) (Auto) 18.7 % (20.0-45.0) L Monocytes (%) (Auto) 4.6 % (1.0-10.0) Eosinophils (%) (Auto) 2.2 % (0.0-3.0) Basophils (%) (Auto) 0.6 % (0.0-2.0) Sodium Level 144 mEQ/L (135-145) Potassium Level 4.5 mEQ/L (3.4-4.9) Chloride Level 105 mEQ/L (98-107) Carbon Dioxide Level 27 mEQ/L (20-30) Anion Gap 12 (5-15) Blood Urea Nitrogen 11 mg/dL (7-23) Creatinine 0.6 mg/dL (0.5-0.9) Estimat Glomerular Filtration Rate mL/min (>60) Glucose Level 84 mg/dL (74-106) Calcium Level 9.6 mg/dL (8.6-10.2) Current Medications Medications (Trade) Dose Ordered Sig/Remy Route PRN Reason Start Time Stop Time Status Last Admin Dose Admin Amylase/Lipase/ Protease (Pancrease) 2 ea THREE TIMES A DAY ORAL 04/22/16 18:00 05/22/16 17:59 04/23/16 12:48 Artificial Tears (Akwa-Tears) 1 drop QID BOTH EYES 04/22/16 18:00 05/22/16 17:59 04/23/16 12:47 Aspirin (ASA) 81 mg DAILY ORAL 04/23/16 09:00 05/23/16 08:59 04/23/16 08:19 Atorvastatin Calcium (Lipitor) 10 mg BEDTIME ORAL 04/22/16 21:00 05/22/16 20:59 04/22/16 20:32 Donepezil HCl (Aricept) 5 mg QHS ORAL 04/22/16 21:00 05/22/16 20:59 04/22/16 20:32 Duloxetine HCl (Cymbalta) 20 mg DAILY ORAL 04/23/16 09:00 05/23/16 08:59 04/23/16 08:20 Escitalopram Oxalate (Lexapro) 5 mg DAILY ORAL 04/23/16 09:00 05/23/16 08:59 04/23/16 10:14 Heparin Sodium (Porcine) (Heparin 5000 units/ml) 5,000 units EVERY 12 HOURS SUBQ 04/22/16 21:00 05/22/16 20:59 Memantine (Namenda) 10 mg BID ORAL 04/22/16 18:00 05/22/16 17:59 04/23/16 08:21 Metoprolol Tartrate (Lopressor) 25 mg Q12HR ORAL 04/22/16 21:00 05/22/16 20:59 04/23/16 08:20 Nitroglycerin (Nitro-Bid) 1 inch TID@0600,1200,1800 TOPIC 04/22/16 18:00 05/22/16 17:59 04/23/16 12:47 Pantoprazole (Protonix) 40 mg DAILY ORAL 04/23/16 09:00 05/23/16 08:59 04/23/16 08:21 Timolol Maleate (Timoptic 0.5% Op Soln) 1 drop TWICE A DAY BOTH EYES 04/22/16 18:00 05/22/16 17:59 04/23/16 12:47 Height (Feet): 5 Height (Inches): 2.00 Weight (Pounds): 110 General Appearance: no apparent distress, alert Head: normocephalic Eyes: bilateral anicteric ENT: normal voice, dry mucus membranes - slightly dry Neck: full range of motion, no mass Respiratory: lungs clear, decreased breath sounds Cardiovascular: regular rate, rhythm Gastrointestinal: normal bowel sounds, non tender, soft, no mass, no organomegaly, non-distended Musculoskeletal: no calf tenderness Edema: no edema noted Generalized Neurologic: no new focality NUBIA MARC Apr 23, 2016 15:01
[2016-04-23] MEDS ORDERED: CYMBALTA20 MG ORAL (15:06)
[2016-04-23] MEDS ORDERED: NITRO-BID1 GM TOPIC (15:06)
[2016-04-23] MEDS ORDERED: LOPRESSOR25 M1 ORAL (15:06)
[2016-04-23] MEDS ORDERED: LIPITOR10 MG ORAL (15:06)
[2016-04-23 16:00] VITALS: BP 119/62
[2016-04-23] MEDS ORDERED: Tubing IV Secondary IV ONE (18:11)
--- NOTE | 2016-04-24 01:58 | Discharge Summary ---
DATE OF ADMISSION: 04/18/2016 DATE OF DISCHARGE: 04/23/2016 DISCHARGE DIAGNOSES: 1. Altered mental status likely multifactorial. 2. Toxic metabolic encephalopathy, resolved. 3. Volume depletion, secondary to poor oral intake. 4. Significant hyponatremia and related electrolyte disorders, resolved with hydration. 5. Azotemia secondary to above, resolved. 6. Troponin leak with mild global left ventricular dysfunction. 7. Suspect hypotensive hypoperfusion global event rather than discrete coronary artery event. 8. 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 9. Depressive syndrome. 10. Multiple abdominal complaints including abdominal bloating, reflux, hiatal hernia, presbyesophagus gastritis and pancreatic insufficiency with resulting poor oral intake. 11. Hyperlipidemia. 12. Glaucoma. 13. History of urinary tract infections. 14. History of iron-deficiency. 15. History of hemorrhoids. SUMMARY OF HISTORY OF PRESENT ILLNESS: The patient is an 85-year-old woman who presented with lethargy and unresponsiveness to the emergency room. Details of her history and physical examination are per the dictation of 04/18/2016. HOSPITAL COURSE: The patient was found to have significant hyponatremia, azotemia, and leukocytosis associated with her altered mental status on presentation. She was covered empirically with ceftriaxone, but cultures did not suggest a definite infectious etiology and this antibiotic was discontinued prior to discharge. The patient received significant intravenous fluids and her electrolyte abnormalities were corrected. On admission, the patient was noted to have somewhat elevated troponin and her echocardiogram showed diffuse ischemic changes suggesting global ischemia. The patient was seen by Dr. Cavazos and after an extended discussion with the family members and surrogate decision makers, it was decided that the patient not to undergo aggressive interventions. With the correction of the patient's intravascular volume depletion, her electrocardiographic changes resolved to a large extent, again suggesting that the etiology may have been acute event associated with global coronary ischemia secondary to hypoperfusion superimposed on an element of fixed coronary artery disease. As the patient's electrolytes improved and her leukocytosis resolved, she continued to be fairly lethargic and cognitively impaired. Her various medications including Rozerem and memantine were discontinued and her Cymbalta was decreased since there are concerns of the effects of those medications both on her mental status and also on her oral intake and her symptoms of dysphagia. The patient improved significantly on the day of discharge with these manipulations and at this point, the patient appears stable to go to a lower level of care. PLAN: Plan will be to attempt to have the patient undergo physical therapy and improve her cardiovascular tolerance as well as observer for stabilization of oral intake. If the patient is able to adequately hydrate herself and take adequate oral intake, consideration would be given to having her return home with full-time caregiver. In the future based on the findings of this hospitalization, further pruning of the patient's medications may be attempted to try and minimize the potential adverse effects. DISCHARGE MEDICATIONS: At that time, the patient's discharge medications will include Verena VAZQUEZ 24,000 units t.i.d., Lexapro 5 mg at bedtime, Cymbalta 20 mg daily, donepezil 5 mg at bedtime,atorvastatin 10 mg at bedtime, Timoptic b.i.d. OU, Refresh OU, Retain b.i.d. OU, Avenova daily OU, Metoprolol tartrate 25 mg q.12 h., Nitro-Bid ointment one inch t.i.d. at 0600,1200, and 1800 hours, aspirin 81 mg daily, and Protonix 40 mg daily. FOLLOWUP: The patient will be followed up at the longterm facility. DISCHARGE PLAN: The discharge plans were discussed with both the patient's step-son and subsequently with the patient's child care development specialist and all parties concur with the current treatment plan. Aleksander Okeefe M.D. DR: Ravinder JOB#: [id number] CC: [email or web address]
--- NOTE | 2016-05-14 14:48 | Diagnostic Imaging Report ---
Indication: Short of breath. Technique: XRAY CHEST 1 V. Comparison: None Findings: The heart is normal in size. The lungs are clear. No pleural fluid. There is atherosclerotic change of the aorta. The bones are osteopenic. Impression: Atherosclerotic change. Osteopenia. No acute abnormality.
== END 2016-04-23 18:12 | DRG 311 ==
LOC: EDBD 15:17 → EMR 16:20 → 2E 17:28 → EDBEDREQ 17:39 → 2E 04-19 06:34 → 4E 04-22 14:28
DX: I24.9 Acute ischemic heart disease, unspecified (principal); G92 Toxic encephalopathy; E87.0 Hyperosmolality and hypernatremia; N39.0 Urinary tract infection, site not specified; F03.90 Unspecified dementia, unspecified severity, without behavioral disturbance, psychotic disturbance, mood disturbance, and anxiety; H40.9 Unspecified glaucoma; E78.5 Hyperlipidemia, unspecified; F32.9 Major depressive disorder, single episode, unspecified; E86.0 Dehydration; I25.10 Atherosclerotic heart disease of native coronary artery without angina pectoris; Z66 Do not resuscitate; Z86.73 Personal history of transient ischemic attack (TIA), and cerebral infarction without residual deficits
CPT/HCPCS: 36415; 71010; 80048; 80053; 81003; 82550; 82553; 83605; 83735; 84100; 84484; 85025; 85730; 87040; 87086; 87181; 93005; 93306; 94760